=== PATIENT | female | born 1980 | race Two or more races ===

== ENCOUNTER → 2021-07-21 14:13 | Outpatient (BNVA) | payer OTHER, SELFPAY | PROVIDERS: Visit Provider Physician Assistant | DX: M25.521 Pain in right elbow (principal); R07.81 Pleurodynia; Z91.81 History of falling | CPT/HCPCS: 73080; 99203 ==

== ENCOUNTER → 2021-07-25 11:20 | Outpatient (BNVA) | payer OTHER, SELFPAY | PROVIDERS: Visit Provider Physician Assistant Medical | DX: S46.811A Strain of other muscles, fascia and tendons at shoulder and upper arm level, right arm, initial encounter (principal); W18.30XA Fall on same level, unspecified, initial encounter; M77.11 Lateral epicondylitis, right elbow | CPT/HCPCS: 99213 ==

== ENCOUNTER → 2021-08-08 08:55 | Outpatient (BNVA) | payer OTHER, SELFPAY | PROVIDERS: Visit Provider Physician Assistant Medical | DX: M77.01 Medial epicondylitis, right elbow (principal); S46.311A Strain of muscle, fascia and tendon of triceps, right arm, initial encounter; X58.XXXA Exposure to other specified factors, initial encounter | CPT/HCPCS: 73200; 99214 ==

== ENCOUNTER → 2021-08-23 09:38 | Outpatient (BNVA) | payer OTHER, SELFPAY | PROVIDERS: Visit Provider Physician Assistant Medical | DX: M77.11 Lateral epicondylitis, right elbow (principal); S46.811D Strain of other muscles, fascia and tendons at shoulder and upper arm level, right arm, subsequent encounter; X58.XXXD Exposure to other specified factors, subsequent encounter | CPT/HCPCS: 99213 ==

== ENCOUNTER → 2021-09-14 09:42 | Outpatient (BNVA) | payer OTHER, SELFPAY | PROVIDERS: Visit Provider Physician Assistant | DX: M77.11 Lateral epicondylitis, right elbow (principal) | CPT/HCPCS: 20551; 99202; J1100 ==

== ENCOUNTER → 2021-10-05 09:19 | Outpatient (BNVA) | payer OTHER, SELFPAY | PROVIDERS: Visit Provider Physician Assistant | DX: M54.2 Cervicalgia (principal); M77.8 Other enthesopathies, not elsewhere classified; M79.18 Myalgia, other site | CPT/HCPCS: 99212 ==

== ENCOUNTER 2021-11-15 14:30 | Outpatient (RCR) | payer OTHER, SELFPAY ==
--- NOTE | 2021-11-15 15:38 | MHC.OT.OR ---
Occupational Therapy Outpt Reeval Start: 08/11/21 07:47 Freq: Status: Active Protocol: Activity Type Activity Date Activity User E-Sign Co-Sign Detail Recorded Client Recorded Date Recorded By Document 11/15/21 15:25 HILARIO [id number] 11/15/21 15:38 HILARIO 11/15/21 15:25 Outpatient Occupational Therapy Re- evaluation [Treatment History] -Attending Provider Debby Mccallum PA-C -Diagnosis R traumatic epicondylitis/ triceps strain -Evaluation Date 08/11/21 -Treatments to Date 16 -Cancellations to Date 0 -No-Shows to Date 0 [Subjective] -Subjective This morning pain , pain, pain, but now okay forget to wear night wrist support. okay at work but after I get home and start doing things it hurts Worked light duty today Last visit : No difficulty. My daughter do it for me Pain if trying mopping...Okay with dishes, cooking, Pain with reaching back of head Regular work requires heavy lifting -Pain Scale(0-10) 4 -Pain Location Right lat elbow [Objective] -Tests and Measures Pain Medicine Physician Right 40 lb Left 35 lb Elbow ext/flex 10/135 Lifting 5 lb painfree. 10 lb with low pain [Assessment] -Status Progressing -Assessment Slow improving right elbow pain. Elbow ROM , global project manager strength and arm edema WFL Complaint of pain with end range elbow flexion and extension as well as light lifting > 5 lb Reports okay on light duty but pain increases with homemaking tasks Regular duty requires occassional heavy lifting. 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
--- NOTE | 2021-12-13 10:01 | MHC.OT.DC ---
[address] [phone] F: [phone] Occupational Therapy Discharge Note Provider: Debby Mccallum PA-C Diagnosis: R traumatic epicondylitis/triceps strain Date of Surgery: Date of Evaluation: 08/11/21 Date of Discharge: 12/13/21 Treatments to Date: 16 Cancellations to Date: 0 No Shows to Date: 0 Discharge Status: Improved Function Independent with HEP Discharge Summary: Slow improvement Pain primarily in the morning, moderately high. 5/10 improves during day. Pain improved to occasional low with light duty work and increases with some homemaking tasks. 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 Painfree lift up to 5 lb Pt regular duty work requires occasional daily heavy lifting Pt MD follow up on 11/15/21 and has not scheduled con't OT [ End ] Electronically Signed By: Rita Lopez OT CHT CLT Reviewed/agree with student documentation: N/A Therapist: Please Sign and return to therapist, thank you for your referral.
== END 2021-12-13 10:02 | disposition home or self-care (01) ==
LOC: HO.OT 14:30
PROVIDERS: Visit Provider Physician Assistant Medical
DX: M25.521 Pain in right elbow (principal); S46.211D Strain of muscle, fascia and tendon of other parts of biceps, right arm, subsequent encounter
CPT/HCPCS: 97033; 97035; 97110; 97140; 97165

== ENCOUNTER → 2021-11-16 09:10 | Outpatient (BNVA) | payer OTHER, SELFPAY | PROVIDERS: Visit Provider Physician Assistant | DX: M77.11 Lateral epicondylitis, right elbow (principal); M25.421 Effusion, right elbow | CPT/HCPCS: 99212 ==

== ENCOUNTER → 2022-01-05 09:51 | Outpatient (BNVA) | payer OTHER, SELFPAY | PROVIDERS: Visit Provider Physician Assistant | DX: M77.11 Lateral epicondylitis, right elbow (principal) | CPT/HCPCS: 99212 ==

== ENCOUNTER → 2022-02-08 09:17 | Outpatient (BNVA) | payer OTHER, SELFPAY | PROVIDERS: Visit Provider Physician Assistant | DX: M79.18 Myalgia, other site (principal); M54.2 Cervicalgia; M77.8 Other enthesopathies, not elsewhere classified; M77.11 Lateral epicondylitis, right elbow | CPT/HCPCS: 99212 ==

== ENCOUNTER 2022-03-02 16:05 | Outpatient (REF) | payer OTHER, SELFPAY ==
--- NOTE | ~2022-03-02 | XR_ITS ---
EXAMINATION: XR CERVICAL SPINE CLINICAL INFORMATION: G56.91 - Unspecified mononeuropathy of right upper limb COMPARISON: None TECHNIQUE: Cervical spine is imaged in 6 views. FINDINGS: There is gentle levocurvature cervical thoracic spine. The cervical vertebral bodies are normal in height and there is no vertebral compression, spondylolisthesis, destructive process, or prevertebral soft tissue swelling. Some mineralization is suggested just inferior to the anterior arch C1 on the lateral view which may be seen in calcific tendinitis of the longus colli muscles. No prevertebral soft tissue swelling or erosive changes. The odontoid appears intact. No cervical disc narrowing. The oblique view show no osseous narrowing of the neural foramina. No cervical rib. Lung apices are clear. XR/XR cervical spine 4V IMPRESSION: -Levocurvature cervical thoracic spine. -No vertebral compression, spondylolisthesis, disc narrowing. -Mineralization just inferior to anterior arch C1 which may be associated with calcific tendinitis of the longus colli muscles. No prevertebral soft tissue swelling.
== END 2022-03-02 16:06 | disposition home or self-care (01) ==
LOC: HO.XRAY 16:05
PROVIDERS: Visit Provider Nurse Practitioner Family
DX: G56.91 Unspecified mononeuropathy of right upper limb (principal)
CPT/HCPCS: 72050

== ENCOUNTER 2022-03-09 13:30 | Outpatient (RCR) | payer OTHER, SELFPAY ==
--- NOTE | 2022-02-01 14:03 | MHC.OT.EP ---
[address] [phone] Occupational Therapy Plan of Care Date of Evaluation: 02/01/22 Diagnosis: Right lateral epicondylitis Assessment: 41 yo female presents to OT w/ persistent right arm pain after slipping and falling on arm last July. She tried course of OT w/ minimal improvements, also received cortisone injection without relief. She has been on light work duty until recently and has now returned to full work duties, but has had increase in pain. On assessment, she primarily localizes pain to posterior arm along triceps and reports increased pain at nighttime w/ prolonged elbow flex and also w/ difficulty completing heavier tasks (mopping, vacuuming, lifting heavy objects at work). She has decreased websphere architect strength and discomfort w/ end range elbow flex/ext and shoulder flex and rotation. She will benefit from second round of OT to address persistent tricep strain and progress range, strength and overall functional return with goal of full pain free use of right arm. Frequency and Duration: The patient will be seen 2x/wk for 4 weeks Short Term Goals: Ind w/ HEP Ind w/ nighttime modifications to Pt to demo right gross grasp >50lb w/ ease Glass Driller Goals: Quickdash score <25 pts Full elbow and shoulder AROM to end range w/ ease <3/10 w/ simulated mopping/vacuuming tasks Pt to demo lift and carry 20lb box w/ minimal discomfort Right gross grasp 60lb Treatment Plan: Therapeutic Exercise Therapeutic Activity Home Exercise Program Splinting Patient Education Edema Control ADL Training Ultrasound Iontophoresis MHP Cold Packs Soft Tissue Mobilization Kinesiotaping nighttime resting wrist orthosis PRN ? trial dexamethasone Electronically Signed By: Serina Richards OTR/L Please Sign and return to therapist. Thank you once again for your referral.
--- NOTE | 2022-03-10 10:50 | MHC.OT.DC ---
[address] [phone] F: [phone] Occupational Therapy Discharge Note Provider: Annmarie Lujan PA-C Diagnosis: Right lateral epicondylitis Date of Evaluation: 02/01/22 Date of Discharge: 03/09/22 Treatments to Date: 10 Discharge Status: Recommend MD Follow-up Discharge Summary: Ophelia was referred to OT with right lateral elbow pain, persistent since fall last July and had been through course of OT one time prior as well. During our time, she had also been reporting high levels of pain in upper back/neck pain, at times more than elbow. She has had good follow through w/ HEP and tolerates resistance to right elbow w/ resistance, but is reporting no significant change in functional status despite increased tolerance for therex. Pt may benefit from PT eval to address upper back issues, but at this time, no further gains being made w/ OT and she has a good sense of home program. Electronically Signed By: Serina Richards OTR/L CHT Please Sign and return to therapist, thank you for your referral.
== END 2022-03-10 10:52 | disposition home or self-care (01) ==
LOC: HO.OT 13:30
PROVIDERS: Visit Provider Physician Assistant
DX: M77.11 Lateral epicondylitis, right elbow (principal)
CPT/HCPCS: 97035; 97110; 97140; 97165

== ENCOUNTER 2022-03-24 08:34 | Outpatient (RCR) | payer OTHER, SELFPAY ==
--- NOTE | 2022-03-24 13:22 | MHC.PT.EP ---
[facility] [place] Office [place] Office [place] Office [address] Moisés Snow [address] [phone] F: [phone] F: [phone] F: [phone] F: [phone] Physical Therapy Plan of Care Date of Evaluation: Date of Surgery: NA Diagnosis: CERVICAL SPONDYLOSIS WITH RADICULOPATHY Assessment: Pt IS 41 YO F REFERRED TO PT FROM DR HERNANDEZ WITH CERVICAL SPONDYLOSIS WITH RADICULOPATHY. Pt FELL AT WORK IN 08/09 INJURING R ELBOW. HAD 2 BOUTS OF OT WITHOUT DECREASED IN PAIN. AWAITING EMG IN . REPORTS NOW HAS NECK AND R UT PAIN. PRESENTS WITH LIMITED CERV ROM, DECREASED R SHLDER FLEXION AND DECREASED R SHLDER STRENGTH. SHOULD BENEFIT FROM PT TO ADDRESS THESE ISSUES Frequency and Duration: The patient will be seen 2X/WK X 6 WKS Short Term Goals: 1. IMPROVED POSTURE AWARENESS AND AWARENESS NECK CARE 2. I HEP WITH DC EX PLAN 3. RTW Fdc Goals: 1. DECREASED CERV/UT PAIN AT LEAST 50% WITH ADLS 2. INCREASED CERV ROM 5 DEGREES T/O 3. INCREASED R SHLDER FLEXION TO AT LEAST 160 DEGREES Treatment Plan: Modalities to reduce pain, spasms and effusion. Manual therapy to restore motion and function. Therapeutic exercise to improve strength and flexibility. Neuromuscular re-education for posture and balance. Therapeutic activities to return to functional activities of daily living. Electronically signed by: ROBERTO RANGEL PT Please sign and return to therapist. Thank you for your referral.
--- NOTE | 2022-05-09 10:41 | MHC.PT.DC ---
[facility] [place] Office [place] Office [place] Office [address] Moisés Snow [address] [phone] F: [phone] F: [phone] F: [phone] F: [phone] Physical Therapy Discharge Report Diagnosis: CERVICAL SPONDYLOSIS WITH RADICULOPATHY Date of Surgery: NA Date of Evaluation: 03/24/22 Date of Discharge: 05/09/22 Treatments to Date: 1 Cancellations to Date: No Shows to Date: Discharge Status: Patient Elected to Stop Recommend MD Follow-up Discharge Summary: PER ASSESSMENT AT [facility] Pt IS 41 YO F REFERRED TO PT FROM DR HERNANDEZ WITH CERVICAL SPONDYLOSIS WITH RADICULOPATHY. Pt FELL AT WORK IN 08/09 INJURING R ELBOW. HAD 2 BOUTS OF OT WITHOUT DECREASED IN PAIN. AWAITING EMG IN . REPORTS NOW HAS NECK AND R UT PAIN. PRESENTS WITH LIMITED CERV ROM, DECREASED R SHLDER FLEXION AND DECREASED R SHLDER STRENGTH. SHOULD BENEFIT FROM PT TO ADDRESS THESE ISSUES' Pt WAS SEEN FOR [facility] ONLY AND WAS GOING TO BE AWAY AND CALL TO RESCHEDULE APPTS UPON RETURN..NO APPOINTMENTS MADE. OF NOTE, Pt SAW ORTHO ON 05/04/22 AND PER ROMEO'S NOTE :'Plan EMG findings of the right elbow were negative for ulnar or median neuropathy. I explained to her that orthopedically, we have exhausted all conservative measure and her imaging studies continue to show up negative. I feel from an orthopedic standpoint she can return to work without restrictions. It seems as though at this point the primary issue is her pain tolerance and the pain in her neck that seems to radiate down the arm which she is seeing pain management for. She was given a note to return to work 05/08/22 with no restrictions. She will f/u prn. ' WILL DC CHART AT THIS TIME SINCE IT HAS BEEN OVER A MONTH SINCE Pt SEEN Electronically signed by: ROBERTO RANGEL PT Please sign and return to therapist. Thank you for your referral.
== END 2022-05-09 10:43 | disposition home or self-care (01) ==
LOC: HO.PT 08:34
PROVIDERS: Visit Provider Nurse Practitioner Family
DX: M47.22 Other spondylosis with radiculopathy, cervical region (principal); G56.91 Unspecified mononeuropathy of right upper limb; M77.11 Lateral epicondylitis, right elbow; M79.18 Myalgia, other site; M54.2 Cervicalgia
CPT/HCPCS: 97110; 97140; 97162

== ENCOUNTER → 2022-04-19 13:23 | Outpatient (BNVA) | payer OTHER, SELFPAY | PROVIDERS: Visit Provider Physician Assistant | DX: M79.18 Myalgia, other site (principal); M54.2 Cervicalgia; M77.8 Other enthesopathies, not elsewhere classified; M77.11 Lateral epicondylitis, right elbow | CPT/HCPCS: 99212 ==

== ENCOUNTER → 2022-04-27 13:43 | Outpatient (BNVA) | payer OTHER, SELFPAY | PROVIDERS: Visit Provider Nurse Practitioner Family | DX: M77.11 Lateral epicondylitis, right elbow (principal); M25.511 Pain in right shoulder; G56.91 Unspecified mononeuropathy of right upper limb; M47.812 Spondylosis without myelopathy or radiculopathy, cervical region | CPT/HCPCS: 99212 ==

== ENCOUNTER 2022-05-01 12:15 | Outpatient (REF) | payer OTHER, SELFPAY ==
--- NOTE | ~2022-05-01 | XR_ITS ---
EXAMINATION: XR SHOULDER, RIGHT CLINICAL INFORMATION: Pain COMPARISON: None TECHNIQUE: Four views of the right shoulder. FINDINGS: No acute fracture or dislocation. Mild degenerative changes of the acromioclavicular joint. The lateral aspect of the clavicle appears mildly superiorly subluxed with respect to the acromion. Soft tissues are unremarkable. XR/XR shoulder RT min 2V IMPRESSION: Mild degenerative changes of the acromioclavicular joint. The lateral aspect of the clavicle appears mildly superiorly subluxed with respect to the acromion, unclear if this could be degenerative or posttraumatic etiology. Recommend correlation with clinical history.
== END 2022-05-01 12:16 | disposition home or self-care (01) ==
LOC: HO.XRAY 12:15
PROVIDERS: Visit Provider Nurse Practitioner Family
DX: M25.511 Pain in right shoulder (principal)
CPT/HCPCS: 73030

== ENCOUNTER → 2022-05-04 08:34 | Outpatient (BNVA) | payer OTHER, SELFPAY | PROVIDERS: Visit Provider Physician Assistant | DX: M77.11 Lateral epicondylitis, right elbow (principal) | CPT/HCPCS: 99212 ==

== ENCOUNTER 2022-09-21 19:45 | Observation (INO) | payer OTHER, SELFPAY ==
--- NOTE | 2022-09-21 | ECG_ITS ---
Test Reason : AB PAIN Blood Pressure : / mmHG Vent. Rate : 086 BPM Atrial Rate : 086 BPM P-R Int : 124 ms QRS Dur : 082 ms QT Int : 388 ms P-R-T Axes : 042 003 011 degrees QTc Int : 464 ms Normal sinus rhythm Minimal voltage criteria for LVH, may be normal variant ( R in aVL ) Borderline ECG When compared with ECG of 30-DEC-2019 19:58, No significant change was found Referred By: Generic ED Physician Electronically Signed By:Zhang Stearns
--- NOTE | ~2022-09-21 | XR_ITS ---
EXAMINATION: XR ABDOMEN COMPLETE CLINICAL INDICATION: Abdominal pain, rule out small bowel obstruction. COMPARISON: CT scan of the abdomen and pelvis dated 09/21/2022. TECHNIQUE: 2 views of the abdomen. FINDINGS: The bowel gas pattern is normal with no evidence of ileus or obstruction. No unusual soft tissue calcifications are noted. The bones are unremarkable. An IUD is seen overlying of the mid pelvis to the left of midline. XR/XR abdomen min 2V IMPRESSION: Nonobstructive bowel gas pattern. Overall appearance appears improved from the previous CT scan, but short-term supine and upright abdominal radiographs are recommended as clinically indicated.
--- NOTE | ~2022-09-21 | CT_ITS ---
EXAMINATION: CT ABDOMEN AND PELVIS WITH CONTRAST CLINICAL INFORMATION: History of surgery for duodenal atresia: Periumbilical pain COMPARISON: 04/03/2015 TECHNIQUE: Multidetector volumetric images were obtained from the superior aspect of the liver through the pubic symphysis following administration 85 mL of Omnipaque 350 intravenous contrast. Sagittal and coronal reformatted images were obtained on the technologist's workstation. Oral contrast: No This CT examination was performed using dose optimization techniques as appropriate, variously including the following: *Automated exposure control *Adjustment of mA and/or kV according to patient size (this includes techniques or standardized protocols for targeted exams where dose is matched to indication/reason for exam; i.e. extremities or head) *Use of iterative reconstruction technique DLP: 534 mGy-cm FINDINGS: LUNG BASES: The visualized lung bases are unremarkable. LIVER, GALLBLADDER, AND BILIARY TREE: Hepatic steatosis. No focal hepatic lesion or intrahepatic biliary duct dilatation The gallbladder is unremarkable with no evidence of radiopaque gallstones, gallbladder wall thickening, or obvious pericholecystic inflammatory changes. PANCREAS: Unremarkable. SPLEEN: Unremarkable. ADRENAL GLANDS: Unremarkable. KIDNEYS AND URETERS: The kidneys are normal in size, shape, and attenuation. No hydronephrosis, hydroureter, or calculi seen. No perinephric stranding. BLADDER: Unremarkable. GASTROINTESTINAL TRACT: There is stranding and inflammatory changes involving the proximal small bowel in the right hemiabdomen (3:42) focal thickening and hyperemia involving the distal jejunum (5:24) There is small volume free fluid noted in the pelvis. Colonic diverticulosis, no CT findings of diverticulitis. ABDOMINAL WALL: No significant hernia is appreciated. LYMPH NODES: Normal. VASCULAR: Unremarkable. PELVIC VISCERA: Intrauterine device is seen within the uterus. OSSEOUS STRUCTURES: Unremarkable. CT/CT abdomen pelvis w IV con IMPRESSION: Stranding and inflammatory changes involving the proximal small bowel in the right hemiabdomen with focal thickening and hyperemia involving the distal jejunum. There is small volume free fluid noted in the pelvis. These findings are concerning for enteritis, which may be infectious, inflammatory, or ischemic. A reactive ileus versus may be present. Partial small bowel obstruction Fleischner guidelines were followed.
[2022-09-21 20:05] VITALS: BP 120/62; PULSE 91; RESP 20; TEMP 36.4; O2SAT 94; BMI 27.9
[2022-09-21 21:22] LABS: MANUAL DIFF FLAG NO
[2022-09-21 21:23] LABS: Basophils Absolute Auto 0.1 X10*3/uL (0.0-0.2); Basophils Percent Auto 0.3 % (0-2); Eosinophils Absolute Auto 0.1 X10*3/uL (0.0-0.4); Eosinophils Percent Auto 0.3 % (0-4); Hemoglobin 15.4 g/dl (12.0-16.0); Imm Gran Abs Auto 0.08 X10*3/uL (0.00-0.03); Imm Gran Pct Auto 0.4 % (0.0-0.4); Lymphocytes Percent Auto 4.9 % (20-40); Mean Corpuscular HGB Conc 33.5 g/dl (31.0-35.0); Mean Corpuscular Hemoglobin 29.1 pg (27.0-33.0); Mean Platelet Volume 9.2 fL (9.4-12.3); Monocytes Absolute Auto 0.9 X10*3/uL (0.1-1.2); Monocytes Percent Auto 4.6 % (2-11); Neutrophils Absolute Auto 17.5 x10*3/uL (2.0-8.3); Neutrophils Percent Auto 89.5 % (45-73); Platelet Count 344 X10*3/uL (160-400); Red Blood Count 5.29 X10*6/uL (4.20-5.50); Red Cell Distribution Width 12.6 % (11.0-16.0); White Blood Count 19.5 X10*3/uL (4.8-10.8)
[2022-09-21 21:24] LABS: Appearance Urine Cloudy; Color Urine Yellow; Glucose Urine UA Negative (Negative); Leukocyte Esterase Urine Small (1+) (Negative); Nitrite Urine Negative (Negative); PH 6.5 (5.0-9.0); Specific Gravity - Urine 1.025 (1.005-1.025); UMIC TRIGGER UACC YES; Urine Blood Moderate (2+) (Negative); Urine Ketones Trace mg/dL (Negative); Urine Protein Trace mg/dL (Neg-Trace)
[2022-09-21 21:37] LABS: Bacteria Urine 3+ (None Seen); Hyaline Casts Urine 0-2 /LPF (0-2); UACC Culture Trigger YES
[2022-09-21 21:46] LABS: Alanine Aminotransferase 14 U/L (0-31); Albumin Level 4.5 g/dL (3.5-5.0); Alkaline Phosphatase 102 U/L (39-117); Anion Gap 13 (12-20); Aspartate Amino Transferase 16 U/L (5-31); Bilirubin Direct < 0.2 mg/dL (0.0-0.5); Bilirubin Total 0.5 mg/dL (0.0-1.0); Blood Urea Nitrogen 19 mg/dL (9-16); Calcium 9.9 mg/dL (8.4-10.2); Carbon Dioxide 23 mmol/L (22-29); Chloride 108 mmol/L (96-108); Creatinine Clr Calc Pharmacy 88.3; Estimated Glomerular Filt Rate > 60; Glucose Random 123 mg/dL (60-115); Lipase 14 U/L (8-78); Potassium 3.7 mmol/L (3.3-5.1); Sodium 140 mmol/L (135-145); Total Protein 7.7 g/dL (6.5-8.0)
--- NOTE | 2022-09-21 23:17 | ED.ABDPAIN ---
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 Related Data Previous Rx's Medication Instructions Recorded gabapentin 300 mg capsule 300 mg PO BEDTIME pain 30 days #30 03/02/22 caps meloxicam 15 mg tablet 15 mg PO DAILY PRN pain (scale 04/27/22 score 7-10) 30 days #30 tabs Allergies Allergy/AdvReac Type Severity Reaction Status Date / Time No Known Allergies Allergy Verified 09/21/22 20:10 Review of Systems Review of Systems Pertinent positives and negatives as stated in HPI PMFSH Past Medical History Source: nursing notes reviewed Social History Social History Advance Directives: No Advance Directives Information Provided: No Current occupational status: employed 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 GENERAL: Well developed, well nourished, in no acute distress. HEAD: Normocephalic/atraumatic EYES: PERRLA, EOMI LUNGS: Normal breath sounds. No adventitious sounds or accessory muscle use. SpO2<94> CARDIOVASCULAR: Regular rate and rhythm without noted murmurs ABDOMEN: Soft, tenderness on palpation over the superior aspect of periumbilical as well as over into the right lower quadrant, scars are consistent with surgical history, non-distended with bowel sounds. MUSCULOSKELETAL: No tenderness, deformities, or effusions noted on gross inspection. EXTREMITIES: No cyanosis, clubbing or edema. SKIN: Inspection of the skin reveals no rashes NEUROLOGIC: Alert and oriented x 4. Strength and sensation to light touch were grossly intact x 4. Medical Decision Making Medical Decision Making [facility] Narrative: 2300: 41-year-old female with upper abdominal pain and still has her gallbladder and appendix. There are no symptoms to suggest obstruction and no hernias were palpated. Review of all investigations my interpretation is patient has enteritis with likely associated ileus, this was discussed with the on-call general surgeon who recommends admission, patient will receive antibiotics. Differential Diagnosis Differential Diagnoses: The differential diagnosis associated with the presentation includes Please see the discussion above Consult Healthcare Provider Management of the patient was discussed with: Remedial Project Manager 0045: 41-year-old female was discussed with Dr. Hopkins, who recommends patient admission for enteritis/ileus. 0053: I discussed case with inpatient hospitalist who accepts admission. Lab Data [facility] Lab Attestation statement: I reviewed the patient's lab results. Please see the discussion above 09/21/22 21:13 09/21/22 21:13 Labs: Lab Results 09/21/22 09/21/22 09/21/22 Range/Units 21:13 21:13 21:17 WBC 19.5 H (4.8-10.8) X10*3/uL RBC 5.29 (4.20-5.50) X10*6/uL Hgb 15.4 (12.0-16.0) g/dl Hct 46.0 (37.0-47.0) % MCV 87.0 (80.0-98.0) fL MCH 29.1 (27.0-33.0) pg MCHC 33.5 (31.0-35.0) g/dl RDW 12.6 (11.0-16.0) % Plt Count 344 (160-400) X10*3/uL MPV 9.2 L (9.4-12.3) fL Immature Gran % (Auto) 0.4 (0.0-0.4) % Neut % (Auto) 89.5 H (45-73) % Lymph % (Auto) 4.9 L (20-40) % Crosby % (Auto) 4.6 (2-11) % Eos % (Auto) 0.3 (0-4) % Baso % (Auto) 0.3 (0-2) % Lymph # (Auto) 1.0 L (1.2-4.9) X10*3/uL Crosby # (Auto) 0.9 (0.1-1.2) X10*3/uL Eos # (Auto) 0.1 (0.0-0.4) X10*3/uL Baso # (Auto) 0.1 (0.0-0.2) X10*3/uL Abs Immat Gran (auto) 0.08 H (0.00-0.03) X10*3/uL Absolute Neuts (auto) 17.5 H (2.0-8.3) x10*3/uL Absolute Nucleated RBC 0.000 (0.0-0.012) X10*3/uL Nucleated RBC % (auto) 0.0 (0.0-0.2) /100WBC Sodium 140 (135-145) mmol/L Potassium 3.7 (3.3-5.1) mmol/L Chloride 108 (96-108) mmol/L Carbon Dioxide 23 (22-29) mmol/L Anion Gap 13 (12-20) BUN 19 H (9-16) mg/dL Creatinine 0.72 (0.5-1.4) mg/dL Estim Creat Clear Calc 88.3 Estimated GFR > 60 Random Glucose 123 H (60-115) mg/dL Lactic Acid (0.5-2.0) mmol/L Calcium 9.9 (8.4-10.2) mg/dL Total Bilirubin 0.5 (0.0-1.0) mg/dL Direct Bilirubin < 0.2 (0.0-0.5) mg/dL AST 16 (5-31) U/L ALT 14 (0-31) U/L Alkaline Phosphatase 102 (39-117) U/L Total Protein 7.7 (6.5-8.0) g/dL Albumin 4.5 (3.5-5.0) g/dL Lipase 14 (8-78) U/L Beta HCG, Quant < 2 mIU/mL Urine Color Yellow Urine Appearance Cloudy Urine pH 6.5 (5.0-9.0) Ur Specific Cochrane 1.025 (1.005-1.025) Urine Protein Trace (Neg-Trace) mg/dL Urine Glucose (UA) Negative (Negative) mg/dL Urine Ketones Trace (Negative) mg/dL Urine Blood Moderate (2+) H (Negative) Urine Nitrite Negative (Negative) Ur Leukocyte Esterase Small (1+) H (Negative) Urine RBC 3-5 H (0-2) /HPF Urine WBC 11-20 H (0-5) /HPF Ur Squamous Epith Cells 11-20 (0-2) /HPF Urine Bacteria 3+ (None Seen) Hyaline Casts 0-2 (0-2) /LPF 09/21/22 Range/Units 23:30 WBC (4.8-10.8) X10*3/uL RBC (4.20-5.50) X10*6/uL Hgb (12.0-16.0) g/dl Hct (37.0-47.0) % MCV (80.0-98.0) fL MCH (27.0-33.0) pg MCHC (31.0-35.0) g/dl RDW (11.0-16.0) % Plt Count (160-400) X10*3/uL MPV (9.4-12.3) fL Immature Gran % (Auto) (0.0-0.4) % Neut % (Auto) (45-73) % Lymph % (Auto) (20-40) % Crosby % (Auto) (2-11) % Eos % (Auto) (0-4) % Baso % (Auto) (0-2) % Lymph # (Auto) (1.2-4.9) X10*3/uL Crosby # (Auto) (0.1-1.2) X10*3/uL Eos # (Auto) (0.0-0.4) X10*3/uL Baso # (Auto) (0.0-0.2) X10*3/uL Abs Immat Gran (auto) (0.00-0.03) X10*3/uL Absolute Neuts (auto) (2.0-8.3) x10*3/uL Absolute Nucleated RBC (0.0-0.012) X10*3/uL Nucleated RBC % (auto) (0.0-0.2) /100WBC Sodium (135-145) mmol/L Potassium (3.3-5.1) mmol/L Chloride (96-108) mmol/L Carbon Dioxide (22-29) mmol/L Anion Gap (12-20) BUN (9-16) mg/dL Creatinine (0.5-1.4) mg/dL Estim Creat Clear Calc Estimated GFR Random Glucose (60-115) mg/dL Lactic Acid 1.4 (0.5-2.0) mmol/L Calcium (8.4-10.2) mg/dL Total Bilirubin (0.0-1.0) mg/dL Direct Bilirubin (0.0-0.5) mg/dL AST (5-31) U/L ALT (0-31) U/L Alkaline Phosphatase (39-117) U/L Total Protein (6.5-8.0) g/dL Albumin (3.5-5.0) g/dL Lipase (8-78) U/L Beta HCG, Quant mIU/mL Urine Color Urine Appearance Urine pH (5.0-9.0) Ur Specific Cochrane (1.005-1.025) Urine Protein (Neg-Trace) mg/dL Urine Glucose (UA) (Negative) mg/dL Urine Ketones (Negative) mg/dL Urine Blood (Negative) Urine Nitrite (Negative) Ur Leukocyte Esterase (Negative) Urine RBC (0-2) /HPF Urine WBC (0-5) /HPF Ur Squamous Epith Cells (0-2) /HPF Urine Bacteria (None Seen) Hyaline Casts (0-2) /LPF Radiology Impression Radiologist Impression: My interpretation is in agreement with radiology's impression of imaging study. Medications Administered Discontinued Medications Generic Name Dose Route Start Last Admin Trade Name Freq PRN Reason Stop Dose Admin Sodium Chloride 1,000 mls @ 999 mls/hr 09/21/22 23:00 09/21/22 23:27 Ns IV 09/22/22 00:00 999 mls/hr .Q1H1M KEEGAN Administration Iohexol 85 ml 09/22/22 00:06 09/22/22 00:06 Iohexol 350 Mg/Ml 100 Ml Infus..Btl IV 09/22/22 00:07 85 ml ONCE ONE Administration Ondansetron HCl 4 mg 09/21/22 23:04 09/21/22 23:34 Ondansetron Hcl 4 Mg/2 Ml Vial IVPUSH 09/21/22 23:05 4 mg ONCE ONE Administration Critical Care Time Critical Care Time Critical Care Time: Yes Total Critical Care Time: 30 Attestation: I personally attest to this time spent taking care of the patient. Discharge Plan Discharge Clinical Impression: Enteritis, infectious, Ileus Patient Disposition: Admitted As Inpatient Prescriptions: No Action gabapentin 300 mg capsule 300 mg PO BEDTIME 30 Days Qty: 30 0RF meloxicam 15 mg tablet 15 mg PO DAILY PRN (Reason: pain (scale score 7-10)) 30 Days Qty: 30 0RF Rx Instructions: Take it with food. Avoid other NSAIDs.
[2022-09-21] MEDS: 0.9 % Sodium Chloride 1,000 ML 999 ML IV (23:27)
--- NOTE | 2022-09-21 23:33 | PC.NURSE ---
PT A&Ox4, reports 8/10 epigastric pain. States it feels like stabbing intermittent pain, rates pain 5/10 when resting. Reports one episode of vomiting. PT repost last BM was this AM. + bowel sounds x4.
[2022-09-21] MEDS: ondansetron HCL 4 MG/2 ML VIAL IVPUSH (23:34)
[2022-09-21 23:38] LABS: HCG Quantitative < 2 mIU/mL
[2022-09-21 23:48] VITALS: BP 114/63; PULSE 72; RESP 18; TEMP 36.6; O2SAT 97
[2022-09-21 23:48] LABS: Lactic Acid 1.4 mmol/L (0.5-2.0)
[2022-09-22] VITALS (8 sets, daily range): BP systolic 104–128; BP diastolic 62–86; PULSE 56–81; RESP 15–17; TEMP 36.4–37.2; O2SAT 97–98
[2022-09-22] MEDS: iohexoL 350 MG/ML 100 ML INFUS..BTL 85 ML IV (00:06)
[2022-09-22] MEDS: Piperacillin Sodium/Tazobactam 3.375 GM in 0.9 % Sodium Chloride 50 ML IV (01:01)
[2022-09-22] MEDS: Enoxaparin Sodium 40 MG/0.4 ML SYRINGE SUBCUT (01:06)
--- NOTE | 2022-09-22 01:47 | PM.IMHP ---
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 Patient states she had sudden onset of periumbilical pain, constant, nonradiating and without any relieving factors. It was associated with nausea and multiple episodes of nonbloody emesis. Endorses chills. She denies fever, chest discomfort, palpitations, shortness of breath, changes in his urinary or bowel habits. No dysuria, constipation. Her last bowel movement was on the day of presentation In the emergency department, imaging with enteritis Review of Systems Constitutional: Constitutional: Reports chills Gastrointestinal: Gastrointestinal: Reports abdominal pain, Reports nausea and Reports vomiting PMFSH Medical History Duodenal atresia Functional capacity: independent ambulation Pertinent family history: No family history of CAD Social History Alcohol intake: current Alcohol intake frequency: holidays/special occasions only Patient Tobacco Use Status: Never used Tobacco Smoked in Last 30 Days: No Use of substances other than those prescribed or required for medical reasons: No Advance Directives: No Advance Directives Information Provided: No Nutrition Risks: No Nutritional Risk Current occupational status: employed 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 Meds Allergies Allergy/AdvReac Type Severity Reaction Status Date / Time No Known Allergies Allergy Verified 09/21/22 20:10 Active Medications: Current Medications Acetaminophen (Acetaminophen 325 Mg Tablet) 650 mg PO Q6H PRN PRN Reason: Pain, Mild (Pain Scale 1-3) Enoxaparin Sodium (Enoxaparin Sodium 40 Mg/0.4 Ml Syringe) 40 mg SUBCUT Q24H [facility] Last Admin: 09/22/22 01:06 Dose: 40 mg Melatonin (Melatonin 3 Mg Tablet) 6 mg PO BEDTIME PRN PRN Reason: Insomnia Ondansetron HCl (Ondansetron Hcl 4 Mg/2 Ml Vial) 4 mg IVPUSH Q8H PRN PRN Reason: Nausea and Vomiting Sodium Chloride (0.9 % Sodium Chloride Flush 3 Ml Syringe) 3 ml IVFLUSH QSHIFT [facility] Physical Exam Vital Signs and Narrative: Vital Signs: Last Vital Signs Temp 97.9 F 09/22/22 01:07 Pulse 79 09/22/22 01:07 Resp 16 09/22/22 01:07 BP 128/86 09/22/22 01:07 Pulse Ox 98 09/22/22 01:07 O2 Del Method 09/22/22 01:07 BMI result Body Mass Index 27.9 Middle-aged female lying in bed in no distress Neck supple, no JVD Regular rate and rhythm, S1-S2 heard Regular breath sounds bilaterally, no wheezing or crackles appreciated Abdomen with epigastric tenderness, no rigidity, no rebound tenderness Patient is awake, alert and oriented to self, place, time and person ; no focal motor deficit Psych: Normal mood No pedal edema Results Labs 09/21/22 21:13 09/21/22 21:13 Labs: Laboratory Results - last 24 hr 09/21/22 09/21/22 09/21/22 21:13 21:13 21:17 MCV 87.0 MCH 29.1 MCHC 33.5 RDW 12.6 Plt Count 344 MPV 9.2 L Immature Gran % (Auto) 0.4 Neut % (Auto) 89.5 H Lymph % (Auto) 4.9 L Glenn % (Auto) 4.6 Eos % (Auto) 0.3 Baso % (Auto) 0.3 Lymph # (Auto) 1.0 L Glenn # (Auto) 0.9 Eos # (Auto) 0.1 Baso # (Auto) 0.1 Abs Immat Gran (auto) 0.08 H Absolute Neuts (auto) 17.5 H Absolute Nucleated RBC 0.000 Nucleated RBC % (auto) 0.0 Anion Gap 13 Estim Creat Clear Calc 88.3 Estimated GFR > 60 Random Glucose 123 H Lactic Acid Calcium 9.9 Total Bilirubin 0.5 Direct Bilirubin < 0.2 AST 16 ALT 14 Alkaline Phosphatase 102 Total Protein 7.7 Albumin 4.5 Lipase 14 Beta HCG, Quant < 2 Urine Color Yellow Urine Appearance Cloudy Urine pH 6.5 Ur Specific [place] 1.025 Urine Protein Trace Urine Glucose (UA) Negative Urine Ketones Trace Urine Blood Moderate (2+) H Urine Nitrite Negative Ur Leukocyte Esterase Small (1+) H Urine RBC 3-5 H Urine WBC 11-20 H Ur Squamous Epith Cells 11-20 Urine Bacteria 3+ Hyaline Casts 0-2 09/21/22 23:30 MCV MCH MCHC RDW Plt Count MPV Immature Gran % (Auto) Neut % (Auto) Lymph % (Auto) Glenn % (Auto) Eos % (Auto) Baso % (Auto) Lymph # (Auto) Glenn # (Auto) Eos # (Auto) Baso # (Auto) Abs Immat Gran (auto) Absolute Neuts (auto) Absolute Nucleated RBC Nucleated RBC % (auto) Anion Gap Estim Creat Clear Calc Estimated GFR Random Glucose Lactic Acid 1.4 Calcium Total Bilirubin Direct Bilirubin AST ALT Alkaline Phosphatase Total Protein Albumin Lipase Beta HCG, Quant Urine Color Urine Appearance Urine pH Ur Specific [place] Urine Protein Urine Glucose (UA) Urine Ketones Urine Blood Urine Nitrite Ur Leukocyte Esterase Urine RBC Urine WBC Ur Squamous Epith Cells Urine Bacteria Hyaline Casts Imaging Radiologist's Impressions: Impressions Abdomen/Pelvis CT 09/21/22 23:59 IMPRESSION: Stranding and inflammatory changes involving the proximal small bowel in the right hemiabdomen with focal thickening and hyperemia involving the distal jejunum. There is small volume free fluid noted in the pelvis. These findings are concerning for enteritis, which may be infectious, inflammatory, or ischemic. A reactive ileus versus may be present. Partial small bowel obstruction Fleischner guidelines were followed. 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 #. Abdominal pain with nausea/vomiting: Concerning for enteritis. Doubt SBO as patient had a normal bowel movement. Will continue empiric IV antibiotics. Resuscitated with IV crystalloids. General surgery was consulted from the ER, appreciate assistance #. Asymptomatic pyuria: Although no indication for treatment as patient does not have symptoms, patient is initiated on antibiotics as above DVT prophylaxis: Lovenox 40 mg daily Full code Time Spent With Patient Time: Total time managing care of this patient today ____ minutes. Quality Stroke Does the patient have a stroke diagnosis?: No VTE Prior VTE?: No VTE Risk Level:: Medical - moderate - high VTE Device Contraindication: Treatment Not Indicated VTE Drug Contraindication: N/A - Med Ordered
[2022-09-22 01:58] LABS: COVID-19 Test Negative (Negative); IDNOW Serial# 6674DD1D
[2022-09-22 04:41] LABS: MANUAL DIFF FLAG NO
[2022-09-22 04:42] LABS: Basophils Percent Auto 0.2 % (0-2); Eosinophils Absolute Auto 0.1 X10*3/uL (0.0-0.4); Eosinophils Percent Auto 0.7 % (0-4); Hematocrit 39.9 % (37.0-47.0); Hemoglobin 13.2 g/dl (12.0-16.0); Imm Gran Abs Auto 0.03 X10*3/uL (0.00-0.03); Imm Gran Pct Auto 0.3 % (0.0-0.4); Lymphocytes Absolute Auto 1.7 X10*3/uL (1.2-4.9); Lymphocytes Percent Auto 15.2 % (20-40); Mean Corpuscular HGB Conc 33.1 g/dl (31.0-35.0); Mean Corpuscular Hemoglobin 29.2 pg (27.0-33.0); Mean Corpuscular Volume 88.3 fL (80.0-98.0); Mean Platelet Volume 8.9 fL (9.4-12.3); Monocytes Absolute Auto 0.6 X10*3/uL (0.1-1.2); Monocytes Percent Auto 5.6 % (2-11); Neutrophils Absolute Auto 8.5 x10*3/uL (2.0-8.3); Platelet Count 312 X10*3/uL (160-400); Red Blood Count 4.52 X10*6/uL (4.20-5.50); Red Cell Distribution Width 12.6 % (11.0-16.0); White Blood Count 10.9 X10*3/uL (4.8-10.8)
[2022-09-22 05:02] LABS: Anion Gap 13 (12-20); Blood Urea Nitrogen 15 mg/dL (9-16); Calcium 8.5 mg/dL (8.4-10.2); Carbon Dioxide 19 mmol/L (22-29); Chloride 110 mmol/L (96-108); Creatinine Clr Calc Pharmacy 97.8; Estimated Glomerular Filt Rate > 60; Glucose Random 114 mg/dL (60-115); Potassium 3.7 mmol/L (3.3-5.1); Sodium 138 mmol/L (135-145)
[2022-09-22] MEDS: Piperacillin Sodium/Tazobactam 4.5 GM in 0.9 % Sodium Chloride 100 ML IV ×3 (05:21→18:00)
[2022-09-22] MEDS: Acetaminophen 325 MG TABLET 650 MG PO ×3 (05:21→21:12)
--- NOTE | 2022-09-22 08:18 | PHA.MEDREC ---
Pharmacy Consult ? Medication Reconciliation Pharmacy has completed the medication reconciliation. Spoke with patient in the ED. Patient reports no home medications
[2022-09-22] MEDS: 0.9 % Sodium Chloride Flush 3 ML SYRINGE IVFLUSH (09:25)
--- NOTE | 2022-09-22 09:29 | PC.NURSE ---
pt is a/o x 4 no sob/dara noted speaks in full sentences. lungs - cta. heart sounds - regular. abd soft non-tender, bs - hypoactive. no edema noted.
--- NOTE | 2022-09-22 12:08 | PM.EVENT ---
Event Note Date of Service: 09/22/22 Event Note: seen and examined. Feels a bit better, no n/v, mild pain. minimal tenderness to palpation. Gi consult, start liquid diet. o/w a/p per H and P from today Time Spent With Patient Time: Total time managing care of this patient today ____ minutes.
--- NOTE | 2022-09-22 15:51 | PC.NURSE ---
pt from ED in wheelchair. up to hospital bed independently. laying in bed watching tv, no signs of distress noted. call dhaliwal within reach
--- NOTE | 2022-09-22 15:56 | MHC.CM.PN ---
PT REPORTS SHE LIVES WITH HER S/O AND DAUGHTER SHE IS INDEPENDENT WITH CARE, HAS NO DME AND NO SERVICES PT DECLINES A HCP PCP AT [facility] SHE IS COVID [employer] OBSERVATION NOTICE DELIVERED, COPY SENT TO [facility] DCP: HOME NO SERVICES DAUGHTER TO TRANSPORT
--- NOTE | 2022-09-22 21:14 | PC.NURSE ---
Pt A&) x 4 reports ids waiting for consult with surgeon. Pt c/o 03/29 mid abdominal pain described as squeezing and constant. Pt diet is clear liquids. Pt medicated per MAR. Pt denies N/V at this time.
[2022-09-23] MEDS: Piperacillin Sodium/Tazobactam 4.5 GM in 0.9 % Sodium Chloride 100 ML IV ×5 (00:19→23:40)
[2022-09-23] MEDS: Enoxaparin Sodium 40 MG/0.4 ML SYRINGE SUBCUT (00:19)
[2022-09-23] MEDS: 0.9 % Sodium Chloride Flush 3 ML SYRINGE IVFLUSH ×4 (00:20→23:41)
--- NOTE | 2022-09-23 06:15 | PC.NURSE ---
Pt GONZALEZ x 4 medicated per Mar denies Nausea or pain at this time.
[2022-09-23 09:03] VITALS: BP 138/74; PULSE 71; RESP 16; TEMP 36.2; O2SAT 97
[2022-09-23] MEDS: Acetaminophen 325 MG TABLET 650 MG PO ×2 (11:43→17:52)
--- NOTE | 2022-09-23 14:53 | HO.PM.IMPN ---
Subjective Subjective Date of Service: 09/23/22 Interval History: Follow-up on enteritis, no longer with abdominal pain nausea vomiting Review of Systems Pertinent positives and negatives as stated in HPI Physical Exam Vital Signs: Vital Signs: Last Vital Signs Temp 97.1 F 09/23/22 09:03 Pulse 71 09/23/22 09:03 Resp 16 09/23/22 09:03 BP 138/74 09/23/22 09:03 Pulse Ox 97 09/23/22 09:03 O2 Del Method 09/23/22 09:03 BMI result Body Mass Index 27.9 Objective Data Active Medications Acetaminophen (Acetaminophen 325 Mg Tablet) 650 mg PO Q6H PRN PRN Reason: Pain, Mild (Pain Scale 1-3) Last Admin: 09/23/22 11:43 Dose: 650 mg Documented By: FLAQUITO Enoxaparin Sodium (Enoxaparin Sodium 40 Mg/0.4 Ml Syringe) 40 mg SUBCUT Q24H [facility] Last Admin: 09/23/22 00:19 Dose: 40 mg Documented By: KASSANDRA Piperacillin Sod/Tazobactam (Sod 4.5 gm/ Sodium Chloride) 100 mls @ 200 mls/hr IV Q6H [facility] Last Infusion: 09/23/22 12:15 Dose: 100 mls/hr Documented By: FLAQUITO Melatonin (Melatonin 3 Mg Tablet) 6 mg PO BEDTIME PRN PRN Reason: Insomnia Ondansetron HCl (Ondansetron Hcl 4 Mg/2 Ml Vial) 4 mg IVPUSH Q8H PRN PRN Reason: Nausea and Vomiting Pharmacy Consult (Consult Rx Perform Med Rec) 1 each MISCELLANE ONCE PRN PRN Reason: Consult order Sodium Chloride (0.9 % Sodium Chloride Flush 3 Ml Syringe) 3 ml IVFLUSH QSHIFT [facility] Last Admin: 09/23/22 09:32 Dose: 3 ml Documented By: FLAQUITO Labs 09/22/22 04:33 09/22/22 04:33 Microbiology Microbiology Results: Microbiology 09/21/22 21:38 Urine Culture - Final Urine clean catch - Urine fitzpatrick top No growth. 09/21/22 23:47 Blood Culture - Preliminary Blood - Venous No growth after 24 hours. 09/21/22 23:30 Blood Culture - Preliminary Blood - Venous No growth after 24 hours. 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 #. Abdominal pain with nausea/vomiting: Concerning for enteritis. Doubt SBO as patient had a normal bowel movement. Will continue empiric IV antibiotics. Resuscitated with IV crystalloids. GI consult #. Asymptomatic pyuria: Although no indication for treatment as patient does not have symptoms, patient is initiated on antibiotics as above DVT prophylaxis: Lovenox 40 mg daily Full code Quality Stroke Does the patient have a stroke diagnosis?: No VTE Prior VTE?: No VTE Risk Level:: Medical - moderate - high VTE Device Contraindication: Treatment Not Indicated VTE Drug Contraindication: N/A - Med Ordered
--- NOTE | 2022-09-23 15:08 | MHC.CM.PN ---
Patient lives with her daughter and her . No prior equipment needs or services. Patient does drive, however at time of D/C, patient's daughter will be transporting patient home. CM to follow.
[2022-09-23 16:14] VITALS: BP 132/70; PULSE 74; RESP 16; TEMP 36.8; O2SAT 98
--- NOTE | 2022-09-23 16:15 | MHC.EDTECH ---
this pct assumed care of pt at 1500 ,pt ask to take a shower ,iv site covered ,towels and toiletries given to patient for her shower ,bedding change ,pt daughter at bedside .
--- NOTE | 2022-09-23 19:35 | MHC.EDTECH ---
patient ate 100 % of dinner ,drank 480 ml fluids .
[2022-09-23 20:00] VITALS: BP 130/70; PULSE 78; RESP 16; TEMP 36.2; O2SAT 98
--- NOTE | 2022-09-23 20:28 | PC.NURSE ---
Addendum entered by Yahaira Meza RN 09/24/22 06:56: Report given to MARA Fitch Original Note: Report received from MARA Beverly pt alert and oriented resting in bed breathing equally unlabored no signs of acute distress notice
--- NOTE | 2022-09-23 20:41 | PM.EVENT ---
Event Note Date of Service: 09/23/22 Event Note: GI Consult-Full note dictated-History via patient with a medical officer psychiatry and the EMR Imp: 41 yo female s/p surgery for duodenal atresia as an who was otherwise well until the day of admission. She developed the onset of acute abdominal pain and distention with associated N/V. Her w/u revealed inflammatory changes in the proximal small bowel on her CT scan, but no obvious obstruction nor abnormalities of the distal small bowel or colon. She denies any preceding history of chronic GI complaints. Since admission she has continued to feel better and is currently tolerating her diet. She reports some residual abdominal pain but she looks very good and her abdominal exam is benign. Her labs have been normal other than an initial leukocytosis. Diff dx: Resolving acute infectious enteritis seems to be the most likely etiology. However, I did review with her in detail the possibility that this may have represented an acute but transient SBO from adhesions in relation to her distant surgery for the duodenal atresia. Rec: At this point I think she can be discharged by tomorrow if things remain stable. However, I did advise her in detail that she would need to comr back to the ER if these symptoms recur so as to rule out a SBO. If things remain stable she would not need any other workup for this otherwise. Of note, we did review the family history of her sister having reported colon cancer in her 20's. Ophelia had a negative colonoscopy in [address] Parada, but none since then. Therefore, I advised her that she definitely needs a follow up colonoscopy this year and she should get a referral and appointment to see me for that. I will have my office reach out to her as well. Thanks Time Spent With Patient Time: Total time managing care of this patient today ____ minutes.
[2022-09-23 20:48] LABS: Appearance Urine Clear; Color Urine Yellow; Glucose Urine UA Negative (Negative); Leukocyte Esterase Urine Trace (Negative); Nitrite Urine Negative (Negative); PH 7.5 (5.0-9.0); Specific Gravity - Urine 1.025 (1.005-1.025); UMIC TRIGGER UACC YES; Urine Blood Trace (Negative); Urine Ketones Trace mg/dL (Negative); Urine Protein Negative (Neg-Trace)
[2022-09-23 20:53] LABS: Bacteria Urine None Seen (None Seen); Hyaline Casts Urine 0-2 /LPF (0-2); Squamous Epithelial Cell Urine 0-2 /HPF (0-2); WBC Urine 0-5 /HPF (0-5)
--- NOTE | 2022-09-24 04:27 | CONS_ITS ---
DATE OF SERVICE: 09/23/2022 REASON FOR CONSULTATION: Abdominal pain, vomiting, and abnormal CT scan of GI tract. HISTORY OF PRESENT ILLNESS: This has been obtained from the patient with associate medical director and from the medical record. The patient is a 41-year-old female, who describes a history of surgery as an infant or child for duodenal atresia. However, since that time she denies any particular GI problems up until the day of admission. At that time, she developed the onset of abdominal distention, abdominal pain, and vomiting. She denies any associated hematemesis nor coffee ground emesis. She denies any diarrhea. She has not noticed any melena, no hematochezia. She denies any associated jaundice or fever. Due to these symptoms, she came to the ER. Since admission here, she has gradually improved and today has been able to tolerate her diet. She did have a bowel movement today that she describes as basically normal without any sign of bleeding. She has had no further vomiting. She describes some residual abdominal discomfort, but eating did not exacerbate that. Prior to the day of admission, she reports that she was not having any particular GI complaints in general. She denies any particular issues with heartburn nor dysphagia. She had been eating normally and comfortably up until the day of admission. Other than the surgery for duodenal atresia, she has had no other surgeries. She does have family history notable for a sister having had colon cancer in her 20s and the patient underwent a negative screening colonoscopy in [address] Parada, but has not had any colonoscopies since that time. She has been afebrile. MEDICATIONS: At home are none. Medications here in the hospital include acetaminophen, Lovenox, melatonin, Zofran p.r.n., and Zosyn. PAST MEDICAL HISTORY: Surgery for duodenal atresia. She denies any other surgeries. She denies history of heart disease, diabetes, asthma nor kidney disease. 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 She does not smoke nor use significant amounts of alcohol. FAMILY HISTORY: As above with sister with colon cancer in her 20s. REVIEW OF SYSTEMS: CONSTITUTIONAL: Up until the day of admission, she had been feeling well with good energy and good appetite. SKIN: No rash. No pruritus. CARDIAC: No chest pain. PULMONARY: No coughing or hemoptysis. GI: As above. URINARY: No dysuria. PHYSICAL EXAMINATION: GENERAL: The patient is a pleasant, alert, comfortable appearing female. SKIN: Warm and dry. HEENT: Anicteric sclerae. NECK: Supple. CHEST: Clear. CARDIAC: Normal S1, S2. ABDOMEN: Soft. Nondistended and nontender. Bowel sounds are normal. There is no mass, rebound, or guarding. LABORATORY DATA: On admission, she had a white blood cell count of 19.5, but the following day was 10.9. Hemoglobin 13.2, platelets 212,000. Normal chemistries, Renal function, LFTs, and lipase. She did have a CT scan the night of admission with only IV contrast. This describes stranding and inflammatory changes involving the proximal small bowel in the right hemiabdomen with focal thickening and hyperemia involving the distal jejunum. There was no evidence of any colonic disease. There is a small volume of free fluid noted in the pelvis. There are no signs of any hernias, lymphadenopathy, gallbladder disease, pancreatic disease, nor biliary disease. IMPRESSION: Given the patient's clinical history, I did review with her that this may very well represent an acute infectious enteritis with associated abdominal pain, vomiting, and the subsequent findings on the CT scan. At this point, her pain seems to be definitely resolving and her abdominal exam is benign. We also reviewed, however, that her acute presentation may have been related to a transient small bowel obstruction in relation to adhesions from her previous surgery for the duodenal atresia. At this point, I do not think anything needs to be done for that since she is symptomatically much improved and is tolerating her diet. However, I did review with her that if these symptoms were to recur in the future, she would need to come back to the ER as soon as possible for evaluation to assess for any type of obstruction that could require surgical intervention. However, I did advise her that if things remain asymptomatic otherwise going forward in the future, she would not need any further evaluation of this problem. We also had a detailed discussion today regarding her family history of colon cancer and her need for a followup colonoscopy given that her last exam was done back in 2006. I have taken her phone number so my office can reach out to her and schedule an office visit to schedule that. I also advised her to obtain a primary care provider so as to obtain a necessary referral. The patient understood all this and was comfortable with this plan. Thank you for the consultation. MD ANETTE Marcos/KATHLEEN / [phone] RIVER
[2022-09-24 06:18] VITALS: BP 118/65; PULSE 61; RESP 18; TEMP 36.4; O2SAT 96
[2022-09-24] MEDS: Piperacillin Sodium/Tazobactam 4.5 GM in 0.9 % Sodium Chloride 100 ML IV (06:41)
[2022-09-24] MEDS: 0.9 % Sodium Chloride Flush 3 ML SYRINGE IVFLUSH (07:05)
--- NOTE | 2022-09-24 07:38 | PC.NURSE ---
meal tray provided
--- NOTE | 2022-09-24 07:45 | PC.NURSE ---
Notified by inpatient MD that pt is to receive abdominal x-ray and if looks okay pt to be discharged home. MD spoke to pt as well to let her know.
--- NOTE | 2022-09-24 09:48 | P.DS_ITS ---
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 Patient states she had sudden onset of periumbilical pain, constant, nonradiating and without any relieving factors.? It was associated with nausea and multiple episodes of nonbloody emesis.? Endorses chills.? She denies fever, chest discomfort, palpitations, shortness of breath, changes in his urinary or bowel habits.? No dysuria, constipation.? Her last bowel movement was on the day of presentation In the emergency department, imaging with enteritis Hospital course: She presented with abdominal pain and workup revealed acute enteritis associated with a ileus. [place] [address]. She was initiated on IV Zosyn and hydrated and over the course of hospitalization her symptoms have significantly improved present without any abdominal pain her diet has been advanced and she is tolerating it quite well. A WBC has come down to 10,000. And abdominal x-rays repeated after the CT scan and showed no evidence of obstruction. She will follow-up with Dr. Persaud who has evaluated her in the hospital and recommend outpatient colonoscopy which he will help arrange. Patient had a bowel movement this morning and feel comfortable going home at this time. She will complete a course of antibiotic with Ceftin 500 mg twice a day for 3 more days and Flagyl 500 mg p.o. twice a day for 3 days for treatment of or enteritis. Time Spent with Patient Time attestation: Total time managing care of this patient today ____ minutes. Discharge coordination time: Greater than 30 minutes Quality: Safe Use of Opioids Does Pt have an Active Cancer Diagnosis on the Problem List?: No Quality: Stroke Does the patient have a stroke diagnosis?: No Physical Exam Vital Signs: Vital Signs: Last Vital Signs Temp 97.6 F 09/24/22 06:18 Pulse 61 09/24/22 06:18 Resp 18 09/24/22 06:18 BP 118/65 09/24/22 06:18 Pulse Ox 96 09/24/22 06:18 O2 Del Method 09/24/22 06:18 BMI result Body Mass Index 27.9 Const: Other: General: AO X 3, no acute distress Resp: CTA bilateral CVS: S1,S2,RRR GI: +BS, NT, no distention Skin: No rash Neuro: motor grossly intact Psych: appropriate affect DS: Data Data Completed and Pending Labs on day of discharge: Laboratory Results - last 24 hr 09/23/22 20:24 Urine Color Yellow Urine Appearance Clear Urine pH 7.5 Ur Specific [place] 1.025 Urine Protein Negative Urine Glucose (UA) Negative Urine Ketones Trace Urine Blood Trace H Urine Nitrite Negative Ur Leukocyte Esterase Trace H Urine RBC 3-5 H Urine WBC 0-5 Ur Squamous Epith Cells 0-2 Urine Bacteria None Seen Hyaline Casts 0-2 Preliminary micro results at discharge 09/21/22 23:47 Blood Culture - Preliminary Blood - Venous No growth after 48 hours. 09/21/22 23:30 Blood Culture - Preliminary Blood - Venous No growth after 48 hours. Discharge Plan Discharge Anticipated Discharge Date/Time: 09/24/22 09:41 Patient Disposition: Home, Self-Care Discharge Diagnosis: Enteritis, Ileus Referrals: Physician,None [Primary Care Provider] - 1 Week Discharge Medications: New metronidazole 500 mg tablet 500 mg PO BID Qty: 6 0RF cefuroxime axetil 500 mg tablet 500 mg PO BID 3 Days Qty: 6 0RF Discharge Orders: Discharge Order (Routine); Ordered 09/24/22 Ordered By: Link Roger Diet: Advance to usual diet Activity on Discharge: As tolerated Stand Alone Forms: Patient Portal Discharge page Care Plan Goals: Full recovery Health Concerns: enteritis ileus Plan of Treatment: Take Flagyl (metronidazole) and Ceftin (cefuroxime) as recommended to treat and enteritis Follow up with Dr persaud for outpatient colonoscopy follow up with your Doctor within a week and ask your doctor to get a regeral for Dr. Persaud to do colonoscopy Assessment: as above
--- NOTE | 2022-09-24 10:02 | MHC.CM.PN ---
PT WILL DC HOME TODAY WITH NO SERVICES VIA [facility]
== END 2022-09-24 10:10 | disposition home or self-care (01) ==
LOC: HO.ED 09-22 00:57 → HO.EDOVER 09-22 03:55
PROVIDERS: Physician Assistant; Admitting Provider Student in an Organized Health Care Education/Training Program; Emergency Provider Student in an Organized Health Care Education/Training Program; Visit Provider Internal Medicine
DX: A09 Infectious gastroenteritis and colitis, unspecified (principal); K56.7 Ileus, unspecified; R82.81 Pyuria; R10.33 Periumbilical pain; R10.31 Right lower quadrant pain; R11.2 Nausea with vomiting, unspecified; Z97.5 Presence of (intrauterine) contraceptive device
CPT/HCPCS: 36415; 74019; 74177; 80048; 80076; 81001; 83605; 83690; 84702; 85025; 87040; 87086; 87635; 93005; 96361; 96365; 96366; 96372; 96375; 99222; 99285; J1650; J2405; J2543; Q9967

== ENCOUNTER 2023-04-18 09:07 | Outpatient (REF) | payer OTHER, SELFPAY ==
--- NOTE | ~2023-04-18 | US_ITS ---
EXAMINATION: US ABDOMEN COMPLETE CLINICAL INFORMATION: Epigastric pain. COMPARISON: X-ray abdomen 09/24/2022. CT abdomen pelvis 09/21/2022. Ultrasound abdomen 03/20/2017. TECHNIQUE: Real-time imaging of the abdominal viscera. FINDINGS: PANCREAS: Normal. ABDOMINAL AORTA: The proximal, mid, and distal segments are normal in caliber. INFERIOR VENA CAVA: Visualized portions are normal. LIVER: The liver is normal in size. The liver contour is normal. No focal hepatic lesion. There is no intrahepatic biliary duct dilatation seen. GALLBLADDER: Normal. The gallbladder is physiologically distended without evidence of stones, sludge, polyps, wall thickening or pericholecystic fluid. COMMON BILE DUCT: Normal in caliber measuring 0.4 cm in diameter. RIGHT KIDNEY: Normal. No hydronephrosis. No renal calculi or focal parenchymal lesions. The kidney measures 10.3 cm in maximum dimension. LEFT KIDNEY: Normal. No hydronephrosis. No renal calculi or focal parenchymal lesions. The kidney measures 9.3 cm in maximum dimension. SPLEEN: The spleen measures 8.1 cm in maximum dimension. FREE FLUID: None. US/US abdomen complete IMPRESSION: No abnormality is identified in the abdomen or pelvis.
== END 2023-04-18 09:08 | disposition home or self-care (01) ==
LOC: HO.US 09:07
PROVIDERS: Visit Provider Internal Medicine
DX: R10.13 Epigastric pain (principal)
CPT/HCPCS: 76700

== ENCOUNTER 2024-03-30 08:22 | Emergency (ER) | payer OTHER, SELFPAY ==
[2024-03-30 08:28] VITALS: BP 123/65; PULSE 101; RESP 20; TEMP 37.2; O2SAT 97; BMI 27.4
[2024-03-30 09:28] LABS: Influenza A PCR NEGATIVE (Negative); Influenza B PCR NEGATIVE (Negative); Resp Syncy Virus RNA Qual PCR NEGATIVE (Negative); SARS COV2 PCR INHOUSE NEGATIVE (Negative)
--- NOTE | 2024-03-30 09:45 | ED_ITS ---
HPI - URI/Sore Throat General Chief Complaint: Upper Respiratory Symptoms Stated Complaint: cold symptoms Time Seen by Provider: 03/30/24 09:00 Source: patient Mode of arrival: ambulatory Limitations: no limitations History of Present Illness HPI Narrative: Patient is a 43-year-old female who presents emergency department for evaluation of URI symptoms x4 days. Intermittent headache, runny nose and nasal congestion, nonproductive cough, a single episode of clear emesis today, chills, body aches, sore throat. Denies any known sick contacts. Denies neck pain, neck stiffness, chest pain, shortness of breath, abdominal pain, numbness or tingling of the extremities, genitourinary symptoms Related Data Previous Rx's ?Medication ?Instructions ?Recorded amoxicillin 875 mg-potassium 1 tab PO BID #14 tabs 03/30/24 clavulanate 125 mg tablet Allergies Allergy/AdvReac Type Severity Reaction Status Date / Time No Known Allergies Allergy Verified 03/30/24 08:31 Review of Systems Review of Systems: Yes all other systems are reviewed and are negative [facility] Past Medical History Attestation statement: The following information was validated with the patient. 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 No acute distress.?Normal affect. Eyes: Pupils equal, round and reactive to light.? ENT: TM mild erythema on the left no bulging, right TM normal.. Pharynx erythematous. Uvula midline. No trismus. No drooling. Bilateral maxillary sinus tenderness upon palpation? Neck: Normal inspection.? Neck supple.??No cervical adenopathy. No nuchal rigidity. CVS: Heart sounds normal. Normal heart rate and rhythm.? Pulses normal.?? Respiratory: No respiratory distress.? Lung sounds clear to auscultation bilaterally?? Abdomen: Soft and non-tender. Normoactive bowel sounds. Skin: Skin warm and dry.? Normal skin color.? ? Extremities: No lower extremity edema.? Neuro: Moves all extremities spontaneously. Sensation intact bilaterally. No motor deficits. Ambulates with normal steady gait. Medical Decision Making Medical Decision Making [facility] Narrative: Patient is a 43-year-old female, presenting for evaluation of upper respiratory symptoms. COVID-19 /influenza testing negative. Strep a testing __, not consistent with RPA, RV TECHNICIAN. No nuchal rigidity, low suspicion for meningitis. She does have notable maxillary sinus tenderness upon palpation. At this time history and physical exam not consistent with ACS/PE/pneumonia. Well-appearing, nontoxic, afebrile, no tachycardia or tachypnea/hypoxia. Speaking clear full sentences, ambulatory with steady gait. Discussed conservative treatment including rest, hydration, Tylenol/ibuprofen as needed for fever and body aches, saline nasal spray, humidifier, [id number] cold medication. Advised to follow-up with primary care provider as needed, discussed reasons to return back to the emergency department. All questions were answered. Patient discharged home in stable condition. Differential Diagnosis Differential Diagnoses: The differential diagnosis associated with the presentation includes ( See narrative above) Admission/Observation Consideration of admission/observation: Escalation of care including admission/observation considered ( see narrative above) Lab Data [facility] Lab Attestation statement: I reviewed the patient's lab results. ( see narrative above) Labs: Lab Results 03/30/24 03/30/24 Range/Units 08:36 10:11 Influenza Type A (PCR) NEGATIVE (Negative) Influenza Type B (PCR) NEGATIVE (Negative) RSV RNA Qual (PCR) NEGATIVE (Negative) SARS-CoV-2 RNA (RT-PCR) NEGATIVE (Negative) S. pyogenes GrpA LO Negative (Negative) Prescription Management I considered prescription management with: Pain Medication ( acetaminophen/ibuprofen) Discharge Plan Discharge Clinical Impression: Acute maxillary sinusitis Patient Disposition: Home, Self-Care Instructions: Sinusitis (ED) Prescriptions: New amoxicillin-pot clavulanate 875-125 mg tablet 1 tab PO BID Qty: 14 0RF Print Language: Andorran
--- NOTE | 2024-03-30 10:17 | PC.NURSE ---
throat swab obtained by provider, sent to lab
[2024-03-30 10:26] LABS: IDNOW Serial# 6674DD1D; Strep A Nucleic Acid Negative (Negative)
[2024-03-30 11:01] VITALS: BP 128/66; PULSE 96; RESP 18; TEMP 36.6; O2SAT 98
== END 2024-03-30 11:01 | disposition home or self-care (01) ==
PROVIDERS: Nurse Practitioner Family; Emergency Provider Emergency Medicine
DX: J32.0 Chronic maxillary sinusitis (principal); J02.9 Acute pharyngitis, unspecified; R51.9 Headache, unspecified; R09.81 Nasal congestion; R05.9 Cough, unspecified; M79.10 Myalgia, unspecified site; Z03.818 Encounter for observation for suspected exposure to other biological agents ruled out
CPT/HCPCS: 0241U; 87651; 99282

== ENCOUNTER 2024-10-02 09:52 | Outpatient (AMB) | payer OTHER, SELFPAY ==
--- OUTSIDE RECORDS SUMMARY | 2024-10-02 10:26 | XMS_ITS ---
Author Organization [facility] Address [address] [place] [address] Care Team Providers Care Corporate Quality Assurance Manager Name Role Phone NONE, NONE Primary Care Provider Unavailabl e Anthony Persaud Unavailable [phone] Acacia MORRISON, Link Unavailable Unavailable REASON FOR VISIT screening, fam hx colon ca,epigastric pain Encounters Encounter Location Date Provider [place] [facility] [place] [address] [place] [id number] [place]/06/2023 Anthony Persaud PLAN OF TREATMENT No Information
--- OUTSIDE RECORDS SUMMARY | 2024-10-02 10:27 | XMS_ITS ---
Author Organization [facility] Address [address] [place] [phone] Care Team Providers Care Digital Design Engineer Name Role Phone NONE, NONE Primary Care Provider UnavailAnthony Ruiz [phone] Acacia MORRISON, Link Unavailable Unavailable REASON FOR VISIT bowel prep MEDICATIONS Medication SIG (Take, Route, Frequency, Duration) Notes Start Date End Date Status Dulcolax (colon prep) 5 MG take at 3:00 p.m and 7:00p.m. Orally two tablets twice a day for one day for 1 day 04/04/2023 Active MiraLax (colon prep) 17 GM/SCOOP 1 238Gm bottle mixed with Gatorade or Crystal Light Orally begin at 5:00 p.m. the day before the procedure for 1 day 04/04/2023 Active Encounters Encounter Location Date Provider Diagnosis [facility] [address] [phone] 04/04/2023 Anthony Persaud PLAN OF TREATMENT Medication Medication Name Sig Start Date Stop Date Notes Dulcolax (colon prep) 5 MG take at 3:00 p.m and 7:00p.m. Orally two tablets twice a day for one day for 1 day 04/04/2023 MiraLax (colon prep) 17 GM/SCOOP 1 238Gm bottle mixed with Gatorade or Crystal Light Orally begin at 5:00 p.m. the day before the procedure for 1 day 04/04/2023
--- OUTSIDE RECORDS SUMMARY | 2024-10-02 10:27 | XMS_ITS | Patient Health Record ---
Author Organization [facility] Address [address] [place] [address] Care Team Providers Care Voltmeter Operator Name Role Phone NONE, NONE Primary Care Provider Anthony Gil Unavailable [phone] Acacia MORRISON, Link Unavailable Unavailable ALLERGIES No Known Allergies REASON FOR REFERRAL No Information MEDICATIONS Medication SIG (Take, Route, Frequency, Duration) [...] the procedure for 1 day 04/04/2023 Active SOCIAL HISTORY Tobacco Use: Social History Observation Description Date Details (start date - stop date) Never Smoker NA - NA Sex Assigned At : Social History Observation Description Sex Assigned At Unknown Tobacco Use/Smoking Question Answer Notes Patient is a nonsmoker Alcohol Screen Question Answer Notes Did you have a drink contain ing alcohol in the past year? Yes How often did you have a dri nk containing alcohol in the past year? Never (0 point) How many drinks did you have on a typical day when you were drinking in the past year? 1 or 2 drinks (0 point) How often did you have 6 or more drinks on one occasion in the past year? Never (0 point) Points 0 Interpretation Negative PROBLEMS Problem Type ICD Code Onset Dates Problem Status W/U Status Risk SNOMED Code Notes Problem Family history of colon cancer (Z80.0) Active confirmed 783395422 Problem Colon cancer screening (Z12.11) Active confirmed 555695161 Problem Epigastric pain (R10.13) Active confirmed 52162262 PLAN OF TREATMENT Pending Test Test Name Order Date US abdomen complete 04/04/2023 Future Test Test Name Order Date UPPER GI ENDOSCOPY 04/04/2023 COLONOSCOPY 04/04/2023 Insurance Providers Payer Name Payer Address Payer Phone Subscriber Number Group Number Insured Name Patient Relationship to Insured Coverage Start Date Coverage End Date [employer] [address] [place] [address] [id number] DANYEL WILLIAM Self - patient is the insured MEDICAL (GENERAL) HISTORY Medical History History ICD Code Denies RI,DM,CVA,Lung disease,renal dise ase [place] [facility] [place] with an abnormal CT scan suggestive of some small bowel inflammation that may have been from either a resolving enteritis or possible resolving small bowel obstruction. This all resolved spontaneously and did not require any endoscopy or surgery. She had normal laboratories at that time including LFTs, CBC, chemistries, and lipase She had a negative screening colonoscopy in [address] Parada Surgical History Surgery Date(Month/Year) Surgery for duodenal atresia as an infan t
--- OUTSIDE RECORDS SUMMARY | 2024-10-02 10:27 | XMS_ITS ---
Author Organization [facility] Address [address] [place] [phone] Care Team Providers Care Precision Machinist Name Role Phone NONE, NONE Primary Care Provider Unavailabl e Anthony Persaud Unavailable [phone] Acacia MORRISON, Link Unavailable Unavailable REASON FOR VISIT 07/06 , 07/09 L/M Encounters Encounter Location Date Provider Diagnosis [facility] [address] [place] [phone] 07/05/2023 Anthony Persaud PLAN OF TREATMENT No Information
[2024-10-02 10:57] VITALS: BP 100/60; PULSE 83; RESP 15; TEMP 36.6; O2SAT 99; BMI 27.8
--- NOTE | 2024-10-02 10:57 | A.OFFPC_ITS ---
Vital Signs 10/02/24 10:57 Height 5 ft 1 in Weight 147 lb BMI 27.8 BP 100/60 Blood Pressure Location Lt brachial Position Sitting Respiration 15 Pulse 83 Pulse Source Pulse Oximeter Temp 97.8 F Temp Source Oral Pulse Oximetry (%) 99 Oxygen Delivery Method Room Air Intake Visit Reasons: [employer] WORKER Annual PE Intake Note: Pt is here today as a New Patient PE Allergies No Known Allergies Allergy (Verified 10/02/24 11:11) Medication List - Last Reconciled 10/02/24 by Doreen Gilmore MD levonorgestrel (Mirena) intrauterine Tobacco use date assessed: 10/02/24 Dental Screening Dental Screen Date: 10/02/24 Did you have a dental visit in the last 12 months?: No Did you have a dental problem in the last 6 months where you did not have access to dental care?: No Was dental information given to patient?: No HPI [employer] WORKER Annual PE HPI Details 43-year-old lady here today for physical exam. She has Mirena IUD inserted at [facility], does not know date of insertion, needs referral to a new OBGYN. 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 1. Little interest or pleasure in doing things: several days 2. Feeling down, depressed, or hopeless: several days 3. Trouble falling or staying asleep, or sleeping too much: several days 4. Feeling tired or having little energy: more than half the days 5. Poor appetite or overeating: not at all 6. Feeling bad about yourself - or that you are a failure or have let yourself or your family down: not at all 7. Trouble concentrating on things, such as reading the newspaper or watching television: not at all 8. Moving or speaking so slowly that other people could have noticed. Or the opposite - being so fidgety or restless that you have been moving around a lot more than usual: not at all 9. Thoughts that you would be better off or of hurting yourself in some way: not at all Total score: 5 Source: Developed by Drs. Anthony Villatoro, Khalida Parsons, Tyson Dunlap and colleagues, with an educational franklin from [employer]. Thrive Questionnaire Date Thrive assessed: 10/02/24 I am a: Patient What is your living situation today?: I have a steady place to live Within the past 12 months, did the food you bought not last and you didn't have the money to get more?: Never true Within the past 12 months, did you worry whether your food would run out before you got money to buy more?: Never true Do you have trouble paying for medicines?: No Do you have trouble getting transportation to medical appointments?: No Do you have trouble paying your heating and electricity bill?: No Do you have trouble taking care of your child, family member or friend?: No Do you have trouble with day-to-day activities such as bathing, preparing meals, shopping, managing finances, etc.?: No Are you currently unemployed and looking for a job?: No Are you interested in more education?: No Please select the resources that you would like help with: None Currently or been in a relationship where the following occur: No concerns reported THRIVE Score: 0 AUDIT C Alcohol Use Questionnaire (AUDIT-C) 1. How often do you have a drink containing alcohol?: Monthly or less 2. How many drinks containing alcohol do you have on a typical day when you are drinking?: 3 or 4 3. How often do you have six or more drinks on one occasion?: Less than monthly Total Score: 3 MARTINE-7 AMB Questionnaire MARTINE-7 Date MARTINE - 7 assessed: 10/02/24 Feeling nervous, anxious, or on edge: 1 = Several days Not being able to stop or control worryin = Several days Worrying too much about different things: 1 = Several days Trouble relaxin = Several days Being so restless that it is hard to sit still: 0 = Not at all Becoming easily annoyed or irritable: 2 = More than half the days Feeling afraid as if something awful might happen: 0 = Not at all Total MARTINE-7 score (0-4 normal; 5-9 mild; 10-14 moderate; 15-21 severe): 6 Source: Developed by Drs. Anthony Villatoro, Khalida Parsons, Tyson Dunlap and colleagues, with an educational franklin from [employer]. Physical exam (Primary Care) Vital Signs: Last Vital Signs Temp 97.8 F 10/02/24 10:57 Pulse 83 10/02/24 10:57 Resp 15 10/02/24 10:57 BP 100/60 10/02/24 10:57 Pulse Ox 99 10/02/24 10:57 Oxygen Delivery Method Room Air 10/02/24 10:57 BMI result Body Mass Index 27.8 Tobacco/Smoking Status: Tobacco use Status Tobacco use date assessed 10/02/24 10/02/24 11:00 Patient Tobacco Use Status Never used Tobacco 10/02/24 11:00 e-Cigarette/Vaping Use Never Used 10/02/24 11:00 PHQ-9: PHQ-9 Score PHQ-9: Total score 5 10/02/24 11:12 Thrive Assessment: Date of Thrive Assessment Date Thrive assessed 10/02/24 10/02/24 11:05 Currently or been in a relationship where the following occur: No concerns reported Office Procedures Flu Questionnaire Does the patient have a severe egg allergy?: No Does the patient have severe life threatening allergies?: No Does the patient have a fever or illness today?: No Has the patient ever had Guillain-Colbert Syndrome?: No Has the patient ever had any past reaction to a flu shot?: No Immunizations Fluarix Triv 3530-9201 (PF) 45 mcg (15 mcg x 3)/0.5 mL IM syringe Performing Provider: Doreen Gilmore MD [place] [facility] [place] [facility] Administered by: Una Paez CMA on 10/02/24 10:45 Dose Route Admin Location Dispensed Lot Number Expiration Date [facility] Assistant District Attorney 0.5 mL IM Right Deltoid 0.5 mL [id number] 02/16/25 [id number] Get[employer] VIS Given Date VIS Provided VIS Publication Date 10/02/24 Single Vaccine 21 Eligibility Eligibility Date Funding Source Not [facility] Eligible 10/02/24 Private Coding Level of Care Code New Pt Prev Care 40-64y(53347) Diagnoses Encounter for screening for malignant neoplasm of colon Z12.11 Family history of colon cancer Z80.0 IUD (intrauterine device) in place Z97.5 Advanced directives, counseling/discussion Z71.89 Annual visit for general adult medical examination with abnormal findings Z00. Assessment & Plan Assessment & Plan (1) Encounter for screening for malignant neoplasm of colon: Code(s): Z12.11 - Encounter for screening for malignant neoplasm of colon (2) Family history of colon cancer: Comment: Sister diagnosed in her20's Code(s): Z80.0 - Family history of malignant neoplasm of digestive organs Category: Medical Plan: Referred to Dr. Persaud for her colon cancer screening (3) IUD (intrauterine device) in place: Code(s): Z97.5 - Presence of (intrauterine) contraceptive device Category: Medical Plan: Referred to OBGYN for IUD surveillance and for cervical cancer screening and pelvic exam (4) Advanced directives, counseling/discussion: Code(s): Z71.89 - Other specified counseling Plan: Initiated the conversation about Advanced Directives. Advanced Directives help patients prepare for current and future decisions about their medical treatment and place of care. Discussed with patient that it is a process where a patients current condition and prognosis are reviewed, their wishes for information regarding their illness are elicited, and likely medical dilemmas are presented and options discussed. Healthcare proxy form completed today. The form can be amended as needed, reviewed yearly and make changes as needed (5) Annual visit for general adult medical examination with abnormal findings: Code(s): Z00.01 - Encounter for general adult medical examination with abnormal findings Plan: Flu shot given Orders: Orders Basic Metabolic Panel Fasting Today Z00.01 - Encounter for general adult medical examination with abnormal findings, Z13.1 - Encounter for screening for diabetes mellitus, Z13.220 - Encounter for screening for lipoid disorders, Z87.738 - Personal history of other specified (corrected) congenital malformations of digestive system Lipid Panel Today Z00.01 - Encounter for general adult medical examination with abnormal findings, Z13.1 - Encounter for screening for diabetes mellitus, Z13.220 - Encounter for screening for lipoid disorders, Z87.738 - Personal history of other specified (corrected) congenital malformations of digestive system Hemoglobin and Hematocrit Today Z00.01 - Encounter for general adult medical examination with abnormal findings, Z13.1 - Encounter for screening for diabetes mellitus, Z13.220 - Encounter for screening for lipoid disorders, Z87.738 - Personal history of other specified (corrected) congenital malformations of digestive system Alanine Aminotransferase Today Z00.01 - Encounter for general adult medical examination with abnormal findings, Z13.1 - Encounter for screening for diabetes mellitus, Z13.220 - Encounter for screening for lipoid disorders Aspartate Amino Transferase Today Z00.01 - Encounter for general adult medical examination with abnormal findings, Z13.1 - Encounter for screening for diabetes mellitus, Z13.220 - Encounter for screening for lipoid disorders, Z87.738 - Personal history of other specified (corrected) congenital malformations of digestive system MM tomosynthesis screening BI Today Z12.31 - Encounter for screening mammogram for malignant neoplasm of breast Influenza 3587-5820 Immunization Today Z23 - Encounter for immunization Referrals TAX [employer]N Referral Z12.4 - Encounter for screening for malignant neoplasm of cervix, Z97.5 - Presence of (intrauterine) contraceptive device Gastroenterology Referral Z12.11 - Encounter for screening for malignant neoplasm of colon, Z80.0 - Family history of malignant neoplasm of digestive organs Medications: New Fluarix Triv [id number] (PF) (flu vacc [id number] 6mos up(PF)) 0.5 mL IM ONCE 0.5 mL 0RF NS Z23 - Encounter for immunization
== END 2024-10-02 11:47 | disposition home or self-care (01) ==
PROVIDERS: PCP Internal Medicine; Visit Provider Internal Medicine
DX: Z23 Encounter for immunization (principal)

== ENCOUNTER → 2024-10-02 09:52 | Outpatient (BNVA) | payer OTHER, SELFPAY | PROVIDERS: Visit Provider Internal Medicine | DX: Z00.01 Encounter for general adult medical examination with abnormal findings (principal); Z23 Encounter for immunization; Z80.0 Family history of malignant neoplasm of digestive organs; Z97.5 Presence of (intrauterine) contraceptive device; Z71.89 Other specified counseling | CPT/HCPCS: 90471; 90656; 96127 ==

== ENCOUNTER 2025-05-08 08:24 | Day surgery (SDC) | payer OTHER, SELFPAY ==
--- OUTSIDE RECORDS SUMMARY | 2025-04-10 15:13 | XMS_ITS | Patient Health Record ---
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 Name Role Phone Doreen Gilmore MD Primary Care Provider Anthony Avalos [phone] Allergies No Known Allergies Reason For Referral No Information Immunizations Vaccine Route Administration Date Status Comme nts Influenza Unknown 06/10/2024 Administered Social History Tobacco Use: Social History Observation Description Date Details (start date - stop date) Never Smoker NA - NA Tobacco Use/Smoking Question Answer Notes Patient is [...] Never (0 point) Points 0 Interpretation Negative Problems Problem Type SNOMED Code ICD Code Onset Dates Problem Status W/U Status Risk Notes Problem 377905072 Colon cancer screening (Z12.11) Active confirmed Problem 87155912 Epigastric pain (R10.13) Active confirmed Problem 104046620 Family history of colon cancer (Z80.0) Active confirmed Vital Signs Temperature 98.7 degrees Fahrenheit 02/03/2025 Blood pressure diastolic 01 mm Hg 02/03/2025 Height 61 in 02/03/2025 Blood pressure systolic 001 mm Hg 02/03/2025 Weight 152.6 lbs 02/03/2025 BMI 28.83 kg/m2 02/03/2025 Procedures Procedure Date Ordered Date Performed Result Body Sit e UPPER GI ENDOSCOPY 02/03/2025 N/A COLONOSCOPY 02/03/2025 N/A Encounters Encounter Location Date Provider Diagnosis [facility] [address] [place] [address] 02/03/2025 Anthony Persaud Family history of colon cancer Z80.0 ; Epigastric pain R10.13 and Colon cancer screening Z12.11 [facility] [address] [place] [address] 02/03/2025 Anthony Persaud Assessments Encounter Date Diagnosis (ICD Code) Assessment Notes Treatment Notes Treatment Clinical Notes Section Notes 02/03/2025 Epigastric pain (ICD-10 - R10.13) Overall, Ophelia appears well and is not having any new or worrisome GI complaints since I last saw her in 2022. We did review the importance of a follow-up colonoscopy since her last exam was back in 2006 and she has the family history of her sister having had colon cancer in her 20s. We did review the rationale for the colonoscopy in regard to colorectal cancer prevention and/or early detection. Of note, she does advise me that she is planning to go for genetic testing as well. On the same day as her colonoscopy I did recommend an upper endoscopy to evaluate her upper abdominal discomfort and occasional reflux. I think it would be important to exclude any component of significant esophagitis, gastritis, and/or a hiatal hernia. The procedures will be done with monitored anesthesia care. Full consent has been obtained from her for the procedures, including risks of bleeding and perforation. Of note, we will have a medical office technologist present on the day of the procedures to review things with Ophelia as well. Ophelia was comfortable with this plan. Thank you again for allowing me to participate in Ophelia's care. I shall continue to keep you advised of her progress. 02/03/2025 Family history of colon cancer (ICD-10 - Z80.0) Overall, Ophelia appears well and is not having any new or worrisome GI complaints since I last saw her in 2022. We did review the importance of a follow-up colonoscopy since her last exam was back in 2006 and she has the family history of her sister having had colon cancer in her 20s. We did review the rationale for the colonoscopy in regard to colorectal cancer prevention and/or early detection. Of note, she does advise me that she is planning to go for genetic testing as well. On the same day as her colonoscopy I did recommend an upper endoscopy to evaluate her upper abdominal discomfort and occasional reflux. I think it would be important to exclude any component of significant esophagitis, gastritis, and/or a hiatal hernia. The procedures will be done with monitored anesthesia care. Full consent has been obtained from her for the procedures, including risks of bleeding and perforation. Of note, we will have a medical office technologist present on the day of the procedures to review things with Ophelia as well. Ophelia was comfortable with this plan. Thank you again for allowing me to participate in Ophelia's care. I shall continue to keep you advised of her progress. 02/03/2025 Colon cancer screening (ICD-10 - Z12.11) Overall, Ophelia appears well and is not having any new or worrisome GI complaints since I last saw her in 2022. We did review the importance of a follow-up colonoscopy since her last exam was back in 2006 and she has the family history of her sister having had colon cancer in her 20s. We did review the rationale for the colonoscopy in regard to colorectal cancer prevention and/or early detection. Of note, she does advise me that she is planning to go for genetic testing as well. On the same day as her colonoscopy I did recommend an upper endoscopy to evaluate her upper abdominal discomfort and occasional reflux. I think it would be important to exclude any component of significant esophagitis, gastritis, and/or a hiatal hernia. The procedures will be done with monitored anesthesia care. Full consent has been obtained from her for the procedures, including risks of bleeding and perforation. Of note, we will have a medical office technologist present on the day of the procedures to review things with Ophelia as well. Ophelia was comfortable with this plan. Thank you again for allowing me to participate in Ophelia's care. I shall continue to keep you advised of her progress. Plan Of Treatment Pending Test Test Name Order Date UPPER GI ENDOSCOPY 02/03/2025 COLONOSCOPY 02/03/2025 US abdomen complete 04/04/2023 Future Test Test Name Order Date UPPER GI ENDOSCOPY 04/04/2023 COLONOSCOPY 04/04/2023 Next Appt Details Provider Name:Anthony Persaud , 05/08/2025 11:00:00 AM, [address] [place] [address] , [place], [place], [phone], Insurance Providers Payer Name Payer Address Payer Phone Subscriber Number Group Number Insured Name Patient Relationship to Insured Coverage Start Date Coverage End Date [employer] [address] [place] [address] [id number] OPHELIA SHUKLA Self - patient is the insured Medical (General) History Medical History History ICD Code Denies ND,DM,CVA,Lung disease,renal dise ase Hospitalized in September of 2022 at [facility] [place] for abdominal pain with an abnormal CT [...]
[2025-05-06 13:00] VITALS: BMI 28.8
--- NOTE | 2025-05-06 14:41 | P.CONAN_ITS ---
Documented by User: Veronica Harvey NP 05/06/25 14:42 HPI - Anesthesia Eval Consult details Narrative: 44yoF for Upper Endoscopy and Colonoscopy PMFSH Active Problems Active Problems: All Active Problems Family history of brain cancer (Acute) Family history of gastric cancer (Acute) Encounter for screening for malignant neoplasm of colon (Acute) Family history of colon cancer (Acute) IUD (intrauterine device) in place (Acute) Cervical spondylosis with radiculopathy (Acute) Past Medical History Medical History Family history of brain cancer Family history of gastric cancer Family history of colon cancer IUD (intrauterine device) in place History of biliary atresia History of duodenal atresia Family History Family History Paternal Grandmother Mental health disorder Maternal Grandmother Brain cancer Sister Colon cancer Surgical History Surgical History History of colonoscopy Social History Social History Housing: House Alcohol intake: current Alcohol intake frequency: holidays/special occasions only Patient Tobacco Use Status: Never used Tobacco e-Cigarette/Vaping Use: Never Used Advance Directives: No Advance Directives Information Provided: Yes service: No Current occupational status: employed 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 Cognitive needs: No Hearing needs: No Vision needs: No Meds Allergies Allergy/AdvReac Type Severity Reaction Status Date / Time No Known Allergies Allergy Verified 05/08/25 09:08 Home Medications ?Medication ?Instructions ?Recorded ?Confirmed ?Last Taken ?Type levonorgestrel (Mirena) 1 device intrauterine USEASD IRECTD 10/02/24 10/02/24 Unknown History omeprazole 20 mg capsule,delayed 20 mg PO DAILY PRN Ga stric Reflux 05/08/25 05/08/25 Unknown History release Exam Height,Weight and Vital Signs: Height 5 ft 1 in Weight 69.116 kg Assessment and Plan Assessment Anesthesia Assessment: Chart Reviewed Documented by User: Nawaf Dior MD 05/08/25 09:20 HPI - Anesthesia Eval Anesthesia Pre-Procedure Meds If yes to any meds - educate patient: Pt education - increased risk of aspiration and/or euvolemic DKA and Pt education - possibility of cancelled proc at provider's discretion PMFSH Past Medical History Medical History Family history of brain cancer Family history of gastric cancer Family history of colon cancer IUD (intrauterine device) in place History of biliary atresia History of duodenal atresia Functional capacity: independent ambulation Family History Family History Paternal Grandmother Mental health disorder Maternal Grandmother Brain cancer Sister Colon cancer Family history of problems with anesthesia: No Surgical History Surgical History History of colonoscopy History of Problems with Anesthesia: No Social History Social History Housing: House Alcohol intake: current Alcohol intake frequency: holidays/special occasions only Patient Tobacco Use Status: Never used Tobacco e-Cigarette/Vaping Use: Never Used Advance Directives: No Advance Directives Information Provided: Yes service: No Current occupational status: employed 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 Cognitive needs: No Hearing needs: No Vision needs: No Meds Allergies Allergy/AdvReac Type Severity Reaction Status Date / Time No Known Allergies Allergy Verified 05/08/25 09:08 Home Medications ?Medication ?Instructions ?Recorded ?Confirmed ?Last Taken ?Type levonorgestrel (Mirena) 1 device intrauterine USEASD IRECTD 10/02/24 10/02/24 Unknown History omeprazole 20 mg capsule,delayed 20 mg PO DAILY PRN Ga stric Reflux 05/08/25 05/08/25 Unknown History release Exam Exam Date and Time: 05/08/2025 Airway TM Dist: >3cm Neck ROM: Full Loose/Missing/Broken Teeth: No Heart: rrr Lungs: cta Other: normal Assessment and Plan Assessment Anesthesia Assessment: Anesthesia Plan Discussed Final Anesthetic Review Family History of Problems with Anesthesia: No History of Problems with Anesthesia: No ASA Class: II Final Preanesthetic Review: No Changes in Pt Med Stat, Meds/Allgs Chart Reviewed, Consent Obtained/Reviewed and Anes Risks/Benef Reviewed Patient Risk: Low Procedure Risk: Low Anesthetic Plan Anesthetic Plan: MAC: Disposition: Standard PACU
[2025-05-08 08:49] LABS: UPreg QC Valid YES
[2025-05-08 09:10] VITALS: BP 127/83; PULSE 81; RESP 15; TEMP 36.2; O2SAT 97; BMI 27.2
[2025-05-08] MEDS: Lactated Ringers 1,000 ML 100 ML IVCONT (09:23)
[2025-05-08 11:40] VITALS: BP 116/46; PULSE 73; RESP 16; TEMP 36.1; O2SAT 99
--- NOTE | 2025-05-08 11:47 | P.BOP_ITS ---
Brief Operative Note Date of Service: 05/08/25 Pre-op diagnosis: Screening, GERD Post-op diagnosis: other (Colon polyps, GERD, Gastritis) Procedure: EGD with biopsies, Colonoscopy to the cecum and TI with hot snare polypectomy x 3. Surgeon: Anthony Persaud MD Anesthesia: MAC Was an Hydraulic Press Operator used for this Procedure?: No Estimated blood loss (mL): 2.0 Pathology: other (A. Gastric antrum B. EG Junction at 35cm C. Cecal polyp D. Polyps at 50cm) Condition: stable Disposition: PACU
[2025-05-08 11:54] VITALS: BP 107/57; PULSE 73; RESP 16; TEMP 36.1; O2SAT 99
--- NOTE | 2025-05-08 13:25 | OP_ITS ---
DATE OF SERVICE: 05/08/2025 SURGEON: Anthony Persaud MD INDICATIONS: The patient presents for evaluation of gastroesophageal reflux, abdominal discomfort, family history of colon cancer, and colorectal cancer screening. Full consent has been obtained from her for this, including risks of bleeding and perforation. PREOPERATIVE DIAGNOSIS: POSTOPERATIVE DIAGNOSIS: PROCEDURE PERFORMED: Esophagogastroduodenoscopy with biopsies, and colonoscopy to the cecum and terminal ileum with hot snare polypectomy x 3. ESTIMATED BLOOD LOSS: COMPLICATIONS: ANESTHESIA: Medication used, monitored anesthesia care. ASSISTANTS: SPECIMENS: PREOPERATIVE DIAGNOSES: Gastroesophageal reflux, abdominal pain, family history of colon cancer, and colorectal cancer screening. POSTOPERATIVE DIAGNOSES: Gastroesophageal reflux, abdominal pain, family history of colon cancer, and colorectal cancer screening, small hiatal hernia, mild gastritis, colon polyps, mild diverticulosis, small internal hemorrhoids. DESCRIPTION OF PROCEDURE: The patient was placed in the left lateral decubitus position. The Olympus video gastroscope was passed in the posterior oropharynx and upper esophagus under direct vision. The scope was passed slowly into the distal esophagus. The gastroesophageal junction appeared at 35 cm. There was some slight irregularity consistent with reflux and possibly small, less than 1 cm, areas of Love's mucosa. There was no esophagitis nor any lesions. There was a small hiatal hernia. The scope was advanced to the pylorus. The duodenum was cannulated. The duodenal bulb appeared to be somewhat distended, and there appeared to be 2 separate limbs with an anastomosis. 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 All the duodenal mucosa appeared normal in both limbs. There was some minimal duodenitis in what appeared to be the distended duodenal bulb. The scope was withdrawn back in the stomach. The pylorus appeared normal. The gastric antrum and body had some areas of erythema but no erosions or ulcerations. There was good peristalsis. Biopsies were obtained from the antrum. The scope was retroflexed visualizing the proximal stomach carefully, which appeared normal, without any sign of mass or ulceration. The scope was straightened and withdrawn back to the esophagus. Biopsies were obtained at the EG junction at 35 cm. Proximal to this, the esophageal mucosa appeared normal. Scope was withdrawn from the patient. She was turned around for the colonoscopy. The digital rectal exam revealed no abnormalities. The Olympus video pediatric colonoscope was entered into the rectum, advanced easily to the cecum. Once in the cecum, I did identify cecal pouch with appendiceal orifice and a normal-appearing ileocecal valve. The terminal ileum was cannulated and appeared normal. Scope was withdrawn back in the colon. In the cecum, just adjacent to the appendiceal orifice was an approximately 10 to 12 mm polyp, which was removed by hot snare polypectomy and then recovered by suction. The polypectomy site appeared clean, without any sign of residual polyp nor bleeding. The remainder of the cecum appeared normal. The scope was slowly withdrawn assessing all mucosal surfaces carefully. Preparation was excellent. At 50 cm were 2 polyps in the same general area. One was approximately 6 to 8 mm and removed by hot snare polypectomy. The other polyp was approximately 6 mm and removed by hot snare polypectomy as well. Both polypectomy sites were clean, without any sign of residual polyp nor bleeding. I did not visualize any other polyps, colitis, nor angiodysplasia. There was a mild amount of sigmoid diverticulosis. In the rectum, scope was retroflexed visualizing some small internal hemorrhoids, but no other pathology. The rectal mucosa appeared normal. Scope was straightened and withdrawn from the patient. She tolerated the procedure well and was returned to the recovery area in stable condition. IMPRESSION: 1. Colon polyps. 2. Mild diverticulosis. 3. Internal hemorrhoids. 4. Hiatal hernia, gastroesophageal reflux, rule out Love's esophagus. 5. Gastritis. PLAN: The results of the pathology will be checked. I would recommend a repeat colonoscopy in 3 years for further screening given today's findings and her family history of colon cancer in a younger sister. She was advised not to use any aspirin nor NSAIDs for 1 week. I will send over a prescription for omeprazole for her to use for her reflux and abdominal discomfort. If there is evidence of Love's esophagus without dysplasia, I would recommend a repeat upper endoscopy in 3 years as well. She will otherwise see me as needed. MD ANETTE Marcos/KATHLEEN / [id number] [email or web address]
== END 2025-05-08 12:32 | disposition home or self-care (01) ==
PROVIDERS: Nurse Practitioner; PCP Internal Medicine; Visit Provider Internal Medicine
PROC: (CPT 45385; principal; 2025-05-08 10:00)
DX: Z12.11 Encounter for screening for malignant neoplasm of colon (principal); Z80.0 Family history of malignant neoplasm of digestive organs; D12.0 Benign neoplasm of cecum; D12.5 Benign neoplasm of sigmoid colon; K57.30 Diverticulosis of large intestine without perforation or abscess without bleeding; K64.8 Other hemorrhoids; R10.13 Epigastric pain; K21.9 Gastro-esophageal reflux disease without esophagitis; K29.50 Unspecified chronic gastritis without bleeding; K44.9 Diaphragmatic hernia without obstruction or gangrene; Z79.899 Other long term (current) drug therapy; Z98.890 Other specified postprocedural states
CPT/HCPCS: 45385; 43239; 81025; 88305; 88313; 88342; J2704; J3010

== ENCOUNTER 2025-06-12 06:24 | Outpatient (REF) | payer OTHER, SELFPAY ==
[2025-06-12 07:29] LABS: Hematocrit 44.7 % (37.0-47.0); Hemoglobin 14.9 g/dl (12.0-16.0)
[2025-06-12 08:15] LABS: Alanine Aminotransferase 19 U/L (0-31); Anion Gap 10 (12-20); Aspartate Amino Transferase 22 U/L (5-31); Blood Urea Nitrogen 17 mg/dL (9-16); Calcium 8.8 mg/dL (8.4-10.2); Carbon Dioxide 24 mmol/L (22-29); Chloride 109 mmol/L (96-108); Cholesterol 171 mg/dL (<200); Estimated Glomerular Filt Rate > 60; HDL Cholesterol 50 mg/dL (>40); Potassium 3.8 mmol/L (3.3-5.1); Sodium 139 mmol/L (135-145); Triglycerides 79 mg/dL (<150)
== END 2025-06-12 06:25 | disposition home or self-care (01) ==
LOC: HO.LAB 06:24
PROVIDERS: PCP Internal Medicine; Visit Provider Internal Medicine
DX: Z00.01 Encounter for general adult medical examination with abnormal findings (principal); Z87.738 Personal history of other specified (corrected) congenital malformations of digestive system; Z13.220 Encounter for screening for lipoid disorders; Z13.1 Encounter for screening for diabetes mellitus; Z13.6 Encounter for screening for cardiovascular disorders
CPT/HCPCS: 36415; 80048; 80061; 84450; 84460; 85014; 85018